=== PATIENT | male | born 1950 | race Caucasian/White ===

== ENCOUNTER 2021-04-25 15:06 | Outpatient (REF) | payer MEDICARE, MEDICAID, SELFPAY ==
[2021-04-25 19:55] LABS: ALT 38 U/L (16-63); AST 16 U/L (15-37); Albumin 4.3 g/dL (3.4-5.0); Alkaline Phosphatase 72 U/L (46-116); Anion Gap 6.5 mmol/L (3-11); BUN 21 mg/dL (7-18); Bilirubin, Total 0.6 mg/dL (0.2-1.0); CO2 32.5 mmol/L (21.0-32.0); CREATININE 1.1 mg/dL (0.70-1.30); Calcium 9.6 mg/dL (8.5-10.1); Calculated LDL 162 mg/dL (<100); Chloride 107 mmol/L (98-107); Cholesterol 254 mg/dL (<200); Glucose 69 mg/dL (74-106); HDL Cholesterol 41 mg/dL (40-60); Potassium 5.3 mmol/L (3.5-5.1); Sodium 146 mmol/L (136-145); Total Protein 7.2 g/dL (6.4-8.2); Triglyceride 256 mg/dL (<150)
[2021-04-26 18:10] LABS: PSA, Screening 3.2 ng/mL (0.0-4.5)
== END 2021-04-25 15:07 | disposition home or self-care (01) ==
LOC: NCHCN 15:06
PROVIDERS: PCP Specialist/Technologist Athletic Trainer; Referring Provider Physician Assistant Medical; Visit Provider Physician Assistant Medical
DX: Z00.00 Encounter for general adult medical examination without abnormal findings (principal); Z12.5 Encounter for screening for malignant neoplasm of prostate
CPT/HCPCS: 80053; 80061; 84153

== ENCOUNTER → 2021-05-12 09:26 | Outpatient (BNVA) | payer MEDICARE, MEDICAID, SELFPAY | PROVIDERS: PCP Physician Assistant Medical; Referring Provider Physician Assistant Medical; Visit Provider Surgery | DX: L72.3 Sebaceous cyst (principal); M67.442 Ganglion, left hand | CPT/HCPCS: 99203; 99241 ==

== ENCOUNTER 2021-05-23 08:31 | Outpatient (REF) | payer MEDICARE, MEDICAID, SELFPAY ==
--- NOTE | 2021-05-23 14:35 | SKI_PTH ---
PATIENT: Tee Bledsoe LOC: [facility]#:[id number] AGE/SX: 71/M ROOM: RE05/23/[address]: Renetta Ruelas : 1950 BED: DIS: 05/23/2021 SPEC #: [id number] RECD: 05/23/21 15:50 STATUS: MILKA REFrankie #: [id number] CAROLYN: 05/23/21 14:[address]: Renetta Ruelas DEPT: Surgical Specimen RECD BY: Pennie Borrego ENTERED: 05/23/21 15:52 SP TYPE: MATT WANG DR: Beth Roman Tissues: 1 - SKIN BIOPSY(SHAVE/PUNCH) 2 - SKIN BIOPSY(SHAVE/PUNCH) 3 - SKIN BIOPSY(SHAVE/PUNCH) Procedures: GROSS AND MICRO LEVEL 3 Comments: [id number]
== END 2021-05-23 08:32 | disposition home or self-care (01) ==
LOC: LBN 08:31
PROVIDERS: PCP Physician Assistant Medical; Visit Provider Surgery
DX: D17.9 Benign lipomatous neoplasm, unspecified (principal); D36.14 Benign neoplasm of peripheral nerves and autonomic nervous system of thorax; L72.8 Other follicular cysts of the skin and subcutaneous tissue
CPT/HCPCS: 88304; 88305

== ENCOUNTER → 2021-05-23 13:24 | Outpatient (BNVA) | payer MEDICARE, MEDICAID, SELFPAY | PROVIDERS: PCP Physician Assistant Medical; Referring Provider Physician Assistant Medical; Visit Provider Surgery | DX: D17.9 Benign lipomatous neoplasm, unspecified (principal); D36.14 Benign neoplasm of peripheral nerves and autonomic nervous system of thorax; L72.8 Other follicular cysts of the skin and subcutaneous tissue | CPT/HCPCS: 11400; 11422; 99241 ==

== ENCOUNTER → 2021-06-02 08:55 | Outpatient (BNVA) | payer MEDICARE, MEDICAID, SELFPAY | PROVIDERS: PCP Physician Assistant Medical; Referring Provider Physician Assistant Medical; Visit Provider Physical Therapy Assistant | DX: Z48.02 Encounter for removal of sutures (principal) ==

== ENCOUNTER 2021-07-11 11:19 | Outpatient (CLI) | payer MEDICARE, MEDICAID, SELFPAY ==
--- NOTE | 2021-07-11 10:15 | DI.RAD_ITS ---
Exam(s) XR HAND LT COMPLETE EXAM: XR HAND LT COMPLETE CLINICAL HISTORY: left hand cyst. TECHNIQUE: 2D digital imaging was performed. COMPARISON: No exams were available for comparison FINDINGS: No evidence of fracture dislocation. Tiny sub millimeter calcific density seen medial aspect of 3rd- middle finger. Soft tissues on the medial aspect of the hand the 3 adjacent small calcifications noted. These may b e associated with structure at this level. In soft tissues on lateral aspect of the hand there is a 1 millimeter density which is adjacent to th e head of the 2nd metatarsal index finger. Bone density is normal. No lytic osseous lesions. IMPRESSION: DATA REPOSITORY: RADIATION DOSE DELIVERED:
== END 2021-07-11 11:20 | disposition home or self-care (01) ==
LOC: DIORS 11:20
PROVIDERS: PCP Physician Assistant Medical; Referring Provider Surgery; Visit Provider Student in an Organized Health Care Education/Training Program
DX: R22.32 Localized swelling, mass and lump, left upper limb; M67.942 Unspecified disorder of synovium and tendon, left hand
CPT/HCPCS: 99213; 73130

== ENCOUNTER 2021-08-01 08:22 | Outpatient (REF) | payer MEDICARE, MEDICAID, SELFPAY ==
[2021-08-01 12:05] LABS: ALT 49 U/L (16-63); AST 22 U/L (15-37); Albumin 4.2 g/dL (3.4-5.0); Alkaline Phosphatase 79 U/L (46-116); BUN 18 mg/dL (7-18); Bilirubin, Total 0.7 mg/dL (0.2-1.0); CREATININE 1.1 mg/dL (0.70-1.30); Calcium 8.8 mg/dL (8.5-10.1); Calculated LDL 89 mg/dL (<100); Chloride 104 mmol/L (98-107); Cholesterol 160 mg/dL (<200); Glucose 89 mg/dL (74-106); HDL Cholesterol 43 mg/dL (40-60); Sodium 142 mmol/L (136-145); Total Protein 6.8 g/dL (6.4-8.2); Triglyceride 141 mg/dL (<150)
== END 2021-08-01 08:23 | disposition home or self-care (01) ==
LOC: NCHCN 08:22
PROVIDERS: PCP Physician Assistant Medical; Visit Provider Physician Assistant Medical
DX: E78.5 Hyperlipidemia, unspecified (principal)
CPT/HCPCS: 80053; 80061

== ENCOUNTER 2022-03-21 10:38 | Outpatient (CLI) | payer MEDICARE, MEDICAID, SELFPAY ==
--- NOTE | 2022-03-21 10:15 | DI.RAD_ITS ---
Exam(s) XR SHOULDER LT COMPLETE 2+V EXAM: XR SHOULDER LT COMPLETE 2+V CLINICAL HISTORY: shoulder pain. TECHNIQUE: 2D digital imaging was performed. COMPARISON: CR RIGHT SHOULDER COMPLETE from 03/04/2013 CR XR SHOULDER RT COMPLETE 2+V from 03/21/2022 FINDINGS: Two views of the left shoulder: No evidence of fracture or dislocation. No joint space narrowing. There is a 3 millimeter calcific density in the soft tissues immediately adjacent to the greater tuberosity consistent with calcific r otator cuff tendinitis. Subacromial space itself is not diminished. Mild degenerative changes in th e AC joint noted. Bone density normal. No osseous lesions. IMPRESSION: DATA REPOSITORY: RADIATION DOSE DELIVERED:
--- NOTE | 2022-03-21 10:15 | DI.RAD_ITS ---
Exam(s) XR SHOULDER RT COMPLETE 2+V EXAM: XR SHOULDER RT COMPLETE 2+V CLINICAL HISTORY: shoulder pain. TECHNIQUE: 2D digital imaging was performed. COMPARISON: CR RIGHT SHOULDER COMPLETE from 03/04/2013 FINDINGS: Two views: No evidence of fracture or dislocation. However, there is a 6 x 5 millimeter calcific density seen m edially above the greater trochanter consistent with calcific tendinitis. Subacromial space is not d iminished and there is no superior subluxation of the humeral head in the glenoid fossa. Minimal deg enerative changes in the glenohumeral joint. No significant osseous lesions. Bone density appears n ormal. IMPRESSION: DATA REPOSITORY: RADIATION DOSE DELIVERED:
== END 2022-03-21 10:39 | disposition home or self-care (01) ==
LOC: DIORS 10:39
PROVIDERS: PCP Physician Assistant Medical; Visit Provider Student in an Organized Health Care Education/Training Program
DX: M25.519 Pain in unspecified shoulder (principal)
CPT/HCPCS: 20610; 99204; 73030; J1030

== ENCOUNTER 2022-04-28 15:12 | Outpatient (REF) | payer MEDICARE, MEDICAID, SELFPAY ==
[2022-04-28 15:35] LABS: ALT 31 U/L (16-63); AST 17 U/L (15-37); Alkaline Phosphatase 95 U/L (46-116); Anion Gap 5.8 mmol/L (3-11); BUN 21 mg/dL (7-18); Bilirubin, Total 0.4 mg/dL (0.2-1.0); CO2 32.2 mmol/L (21.0-32.0); CREATININE 1.3 mg/dL (0.70-1.30); Calcium 9.3 mg/dL (8.5-10.1); Calculated LDL 161 mg/dL (<100); Chloride 103 mmol/L (98-107); Cholesterol 238 mg/dL (<200); Estimated GFR 59.47 (mL/min/1.73m2); Glucose 90 mg/dL (74-106); HDL Cholesterol 41 mg/dL (40-60); Potassium 4.4 mmol/L (3.5-5.1); Sodium 141 mmol/L (136-145); Total Protein 7.7 g/dL (6.4-8.2); Triglyceride 183 mg/dL (<150)
== END 2022-04-28 15:13 | disposition home or self-care (01) ==
LOC: NCHCN 15:12
PROVIDERS: PCP Physician Assistant Medical; Visit Provider Physician Assistant Medical
DX: Z00.00 Encounter for general adult medical examination without abnormal findings (principal); E78.5 Hyperlipidemia, unspecified
CPT/HCPCS: 80053; 80061

== ENCOUNTER → 2022-05-15 01:31 | Outpatient (CLI) | payer MEDICARE, MEDICAID, SELFPAY ==
--- NOTE | 2022-05-15 13:45 | DI.CTLCSR_ITS ---
Exam(s) CT CHEST LUNG CANCER SCREEN EXAM: CT CHEST LUNG CANCER SCREEN CLINICAL HISTORY: CIGARETTE SMOKER, F17.210 TECHNIQUE: Imaging Protocol: Axial computed tomography images with coronal and sagittal reformatted images were created and reviewed. Low dose screening protocol. COMPARISON: CR CHEST 2 VIEWS PA,LAT from 02/01/2015 FINDINGS: Tracheobronchial tree: No bronchiectasis or mucus plugging.. Mediastinum and Marina: No dominant adenopathy or fluid collection. Pulmonary parenchyma: No consolidation or dominant measurable mass. Mild emphysematous changes. Calc ified granuloma left lung base. Mild scarring versus atelectasis right lung base. Lung Nodules: None. Pleura: No effusion. No pneumothorax. Heart: The heart is not dilated. Mild coronary artery calcifications are seen. Aorta: Thoracic aorta non-dilated. Mild atherosclerotic changes. Upper abdomen: Low-density nodule left adrenal gland consistent with an adenoma. Bones: Unremarkable for age. Soft Tissues: Unremarkable. IMPRESSION: No suspicious pulmonary nodules. Lung RADS Cat 1 - Negative: No nodules and definitely benign nodules Lung-RADS 1.0 CATEGORIES: Category 0 - Prior chest CT exam(s) being located for comparison. Category 1 - Annual screening in 12 months. No nodules or definitely benign nodules. Category 2 - Annual screening in 12 months. Benign appearance. Nodules with low likelihood of becomin g active cancer. Category 3 - 6-month follow-up. Probably benign. Short-term follow-up suggested. Nodules with low lik elihood of becoming active cancer. Category 4A - 3-month follow-up and CT/PET if >8 mm in size. Suspicious finding. Findings which requi re additional testing. Category 4B - Findings which require additional testing and tissue sampling. Category 4X - Category 3 or 4 nodules with additional features or imaging findings that increases the suspicion of malignancy. Modifier S- Potentially clinically significant findings (non lung cancer) RADIATION DOSE DELIVERED: 77.88mGy.cm Total DLP 1.84mGy CTDIvol DATA REPOSITORY: All CT scans at this facility are submitted to the National Radiology Data Registry (NRDR) Dose Index Registry (DIR) with the [employer] (ACR). RADIATION OPTIMIZATION: All CT scans at this facility use at least one of these dose optimization te chniques: automated exposure control; mA and/or kV adjustment per patient size (includes targeted exa ms where dose is matched to clinical indication); or iterative reconstruction.
== END ==
PROVIDERS: PCP Physician Assistant Medical; Visit Provider Physician Assistant Medical
DX: Z12.2 Encounter for screening for malignant neoplasm of respiratory organs (principal); F17.210 Nicotine dependence, cigarettes, uncomplicated; J43.8 Other emphysema
CPT/HCPCS: 71271

== ENCOUNTER → 2022-06-08 02:10 | Outpatient (CLI) | payer MEDICARE, MEDICAID, SELFPAY ==
--- NOTE | 2022-06-08 06:45 | DI.MRI_ITS ---
Exam(s) MR UPPER JOINT RT WO CLINICAL HISTORY: R SHOULDER PAIN,CALCIFIC TENDINITIS,M75.31. TECHNIQUE: Multiplanar multisequence MRI was performed. COMPARISON: None FINDINGS: MR examination of the shoulder was performed according to the usual protocol. There is a small effusion of the glenohumeral joint. Trace fluid in the subacromial subdeltoid bursa . Bones and labrum: Subchondral cysts noted in humeral head subjacent to infraspinatus insertion .. Gl enoid labrum appears intact. Rotator cuff: Subscapularis tendon shows slight signal abnormality consistent with tendinosis period supraspinatus shows similar changes, with mild thickening of the tendon and a heterogeneous abnormal signal consistent with tendinosis. No definite supraspinatus tear. Infraspinatus tendon also shows mildly abnormal signal.probable minimal undersurface attachment tear of the infraspinatus at the hum eral head. There is small signal void in infraspinatus tendon consistent with the small calcific rad iodensity noted recently on plain films. Rotator interval structures are unremarkable with no evidence of a tear. Biceps tendon and anchor: Biceps tendon and anchor show normal signal and no evidence of a tear. Katelni ps tendon is normally positioned in the bicipital groove. IMPRESSION: Rotator cuff tendinosis as described above, probable small undersurface attachment tear infraspinatus tendon. DATA REPOSITORY:
== END ==
PROVIDERS: PCP Physician Assistant Medical; Visit Provider Student in an Organized Health Care Education/Training Program
DX: M75.31 Calcific tendinitis of right shoulder (principal)
CPT/HCPCS: 73221

== ENCOUNTER 2022-06-13 15:15 | Outpatient (REF) | payer MEDICARE, MEDICAID, SELFPAY ==
[2022-06-13 16:16] LABS: Creatine Kinase 96 U/L (39-308); Magnesium 2.1 mg/dL (1.8-2.4)
[2022-06-13 16:18] LABS: Abs Immature Grans 0.04 10^3/uL (0.0-0.06); Absolute Basophil Count 0.05 10^3/uL (0.0-0.2); Absolute Eosinophil Count 0.17 10^3/uL (0.0-0.7); Absolute Lymphocyte Count 1.68 10^3/uL (1.2-3.4); Absolute Monocyte Count 0.61 10^3/uL (0.1-0.8); Absolute Neutrophil Count 6.49 10^3/uL (1.2-6.7); Basophils % 0.6; Eosinophils % 1.9; HCT 48.9 % (40.0-50.0); HGB 16.1 g/dL (13.5-17.5); Immature Grans % 0.4; Lymphocytes % 18.6; MCH 29.3 pg (27.0-33.0); MCHC 32.9 % (32.0-36.0); MCV 89 fL (80-95); MPV 9.9 fL (8.0-11.0); Monocytes % 6.7; Neutrophils % 71.8; Platelet Count 257 10^3/uL (130-400); RBC 5.49 10^6/uL (4.36-5.78); RDW 13.5 % (11.8-14.1); RDW-SD 44.2 fL; WBC 9.04 10^3/uL (4.4-10.8)
[2022-06-15 09:33] LABS: Lyme Ab w Rflx to Lyme Confirm Negative (Negative)
[2022-06-17 18:08] LABS: Anaplasma phagocytophilum Negative (Negative); B. miyamotoi PCR Negative (Negative); Babesia divergens/MO-1 Negative (Negative); Babesia duncani Negative (Negative); Babesia microti Negative (Negative); Ehrlichia chaffeensis Negative (Negative); Ehrlichia ewingii/canis Negative (Negative); Ehrlichia muris eauclairensis Negative (Negative)
== END 2022-06-13 15:16 | disposition home or self-care (01) ==
LOC: NCHCN 15:15
PROVIDERS: PCP Physician Assistant Medical; Visit Provider Physician Assistant Medical
DX: M79.10 Myalgia, unspecified site (principal)
CPT/HCPCS: 82550; 87798; 83735; 85025; 86618

== ENCOUNTER → 2022-06-14 13:32 | Outpatient (BNVA) | payer MEDICARE, MEDICAID, SELFPAY | PROVIDERS: PCP Physician Assistant Medical; Referring Provider Physician Assistant Medical; Visit Provider Student in an Organized Health Care Education/Training Program | DX: M75.21 Bicipital tendinitis, right shoulder (principal); M75.31 Calcific tendinitis of right shoulder; M75.51 Bursitis of right shoulder; M75.101 Unspecified rotator cuff tear or rupture of right shoulder, not specified as traumatic | CPT/HCPCS: 99214 ==

== ENCOUNTER 2022-07-27 01:47 | Emergency (ER) | payer MEDICARE, MEDICAID, SELFPAY ==
[2022-07-27 01:55] VITALS: BP 133/80; PULSE 83; RESP 15; TEMP 36.7; O2SAT 97
--- NOTE | 2022-07-27 02:00 | DI.RAD_ITS ---
Exam(s) XR PORTABLE CHEST AP EXAM: XR PORTABLE CHEST AP CLINICAL HISTORY: cough TECHNIQUE: 2D digital imaging was performed. COMPARISON: CT CT CHEST LUNG CANCER SCREEN from 05/15/2022 FINDINGS: LUNGS: Clear. No pleural abnormality seen. HEART: Normal size. AORTA: Normal diameter. Mildly tortuous. BONES: Unremarkable for age. Soft tissues: Unremarkable. IMPRESSION: No acute findings. DATA REPOSITORY: RADIATION DOSE DELIVERED:
--- NOTE | 2022-07-27 02:07 | ED.GENADUL_ITS ---
Discharge Plan Disposition Patient Disposition: Home Condition: Stable Discharge Details Clinical Impression: Influenza, Shortness of breath Primary Care Provider: Bteh Roman ED Provider: Gordon Massey Home Meds and New Rx's Prescriptions: New prednisone 20 mg tablet 60 mg PO DAILY 4 Days Qty: 12 0RF Continued acetaminophen [Tylenol] 325 mg capsule 325 mg PO ONCE PRN ibuprofen [Advil] 200 mg tablet 200 mg PO Q6H PRN latanoprost 0.005 % drops 1 drp ophthalmic (eye) .QHS Label Comments: INSTILL 1 DROP IN BOTH EYES EVERY EVENING Discharge Instructions Instructions: Influenza (ED), Dyspnea (ED) Additional Instructions: Your blood work and xray did not show concerning findings You can take 2 puffs from the inhaler every 2-4 hours as needed follow up with your primary care provider within 1 week if you feel more ill, have worsening shortness of breath or pain return to the emergency department Medical Decision Making 72 yo male who denies chronic medical problems, is a chronic smoker, comes in with 4 days of worsening cough and dyspnea. He states he went to his pcp's office Sunday and tested positive for flu A. He states he feels like his right lower lung feels tight. He denies any chest pain or chest pressure. He arrives speaking clearly, caox4. He has diffuse wheezing in all lung lea bilaterally, no jvd, no murmurs, no lower leg swelling or calf tenderness. I suspect he has undiagnosed copd given his chronic smoking history and due to the flu is causing it to worsen, will treat with duoneb and solumedrol. Will obtain cbc, cmp and cxr to evaluate for infiltrate. No leg swelling and no calf tenderness, no tachycardia or hypoxia so doubt Pe and no chest pain to suggest acs at this time and symptoms seem infectious in etiology. pt feels better after two duonebs, only has mild apical wheezing bilaterally now. Xray unremarkable, blood work unremarkable, he is positive for both covid and flu. He states he had covid a month or so ago and took paxlovid, could be testing positive from this. He is 95% on room air, speaking in full sentences and feels well enough for d/c. Discussed paxlovid again but he is vaccinated and boostered so declines this and has decision making capacity. Will d/c with albuterol inhaler, prednisone and advised to f/u with pcp, return precautions given Differential Diagnosis Differential Diagnosis: influenza, copd, pneumonia Imaging Data Radiologic Study: Attestation: I personally reviewed and interpreted this imaging study as follows: Imaging: X-Ray Radiologist's impression: no acute findings Lab Data Lab results reviewed: Yes I reviewed the patient's lab results. HPI General Mode of arrival: ambulatory . Date/Time Provider Initiated Documentation: 07/27/22 01:51 . Limitations to Documentation: no limitations . Information obtained by: patient . History of Present Illness 72 year old M presents to the emergency department with the chief complaint of cough, described as moderate, Patient started experiencing this day(s) (4) and it has been constant. No relieving factors improve symptom(s), No exacerbating factors reported . Patient notes fever/chills. Patient did receive the following treatments prior to arrival, none Related Data Home Medications Medication Instructions Recorded Confirmed acetaminophen 325 mg capsule 325 mg PO ONCE PRN 03/21/22 07/27/22 (Tylenol) ibuprofen 200 mg tablet (Advil) 200 mg PO Q6H PRN 03/21/22 07/27/22 latanoprost 0.005 % eye drops 1 drp ophthalmic (eye) .QHS 07/27/22 07/27/22 prednisone 20 mg tablet 60 mg PO DAILY 4 days #12 tabs 07/27/22 Previous Rx's Medication Instructions Recorded prednisone 20 mg tablet 60 mg PO DAILY 4 days #12 tabs 07/27/22 Allergies Allergy/AdvReac Type Severity Reaction Status Date / Time No Known Allergies Allergy Unverified 07/27/22 02:01 General Stated Complaint: Chest/Rib STAR: 3 Review of Systems All systems reviewed & are unremarkable except as noted in HPI and below Constitutional Constitutional: Denies chills, Denies fever(s) and Denies weakness Eyes Eyes: Denies loss of vision Cardiovascular Cardiovascular: Denies chest pain Gastrointestinal Gastrointestinal: Denies abdominal pain, Denies nausea and Denies vomiting Musculoskeletal Musculoskeletal: Denies joint swelling Neurologic Neurologic: Denies loss of vision and Denies weakness PFSH All Active Problems (Updated 07/27/22 @ 03:51 by Gordon Massey MD) Influenza (Acute) Shortness of breath (Acute) Rotator cuff tear, right (Acute) Bursitis of right shoulder (Acute) Tendonitis of long head of biceps brachii of right shoulder (Acute) Calcific tendinitis of right shoulder (Acute) Calcific tendinitis of left shoulder (Acute) Mass of left finger (Acute) Seborrheic keratoses (Acute) Actinic keratitis (Acute) Lipoma (Acute) Ganglion cyst (Acute) Sebaceous cyst (Acute) Medical History Diverticulosis Dyslipidemia Erectile dysfunction Lipoma of neck Smoker Surgical History (Updated 04/28/21 @ 15:46 by Charlotte Gardner RN) History of colonoscopy (~06/20/06) History of inguinal hernia repair Social History Smoking/Tobacco Use Status: Current every day Smoking risk assessment performed?: Yes Alcohol Intake: never Drug use: Never Substance use type: does not use Current gender identity: male Exam Const General: no acute distress Orientation: alert HENMT Head: normal to inspection Ears: external ears normal General nose exam: external nose normal Mouth: moist mucous membranes Eyes General: appearance normal, both eyes and all related structures Neck Neck: normal visual inspection Resp Effort & Inspection: normal respiratory effort, able to speak in complete sentences and cough Auscultation: wheezes Cardio Jugular venous pressure: no JVD Rate: regular rate Heart Sounds: no murmurs Skin General skin exam: no rashes or lesions noted Neuro General: patient alert and patient oriented x3 Extrem General: normal to inspection Psych Mental Status: mental status grossly normal Course Vital Signs Vital signs: Vital Signs Temperature 36.7 C 07/27/22 01:55 Pulse 83 07/27/22 01:55 Respiratory Rate 15 07/27/22 01:55 Blood Pressure 133/80 07/27/22 01:55 Pulse Oximetry 97 07/27/22 01:55 Temperature 36.7 C 07/27/22 01:55 Temperature Source Temporal Artery Scan 07/27/22 01:55 Pulse 83 07/27/22 01:55 Respiratory Rate 15 07/27/22 01:55 Respiratory Effort 07/27/22 01:55 Blood Pressure 133/80 07/27/22 01:55 Blood Pressure Position Supine 07/27/22 01:55 Pulse Oximetry 97 07/27/22 01:55 Pain Level 10 07/27/22 01:55
[2022-07-27] MEDS: Albuterol/Ipratropium 3 ML UPD VIAL UPD (02:10)
[2022-07-27] MEDS: methylPREDNISolone SUCC 125 MG VIAL IVP (02:10)
[2022-07-27] MEDS: Normal Saline Flush 10 ML SYR IVP (02:15)
[2022-07-27 02:16] LABS: Abs Immature Grans 0.01 10^3/uL (0.0-0.06); Absolute Basophil Count 0.01 10^3/uL (0.0-0.2); Absolute Eosinophil Count 0.14 10^3/uL (0.0-0.7); Absolute Lymphocyte Count 1.42 10^3/uL (1.2-3.4); Absolute Monocyte Count 0.68 10^3/uL (0.1-0.8); Absolute Neutrophil Count 2.98 10^3/uL (1.2-6.7); Basophils % 0.2; Eosinophils % 2.7; HCT 46.6 % (40.0-50.0); HGB 15.2 g/dL (13.5-17.5); Immature Grans % 0.2; Lymphocytes % 27.1; MCH 29.2 pg (27.0-33.0); MCHC 32.6 % (32.0-36.0); MCV 90 fL (80-95); Neutrophils % 56.8; Platelet Count 181 10^3/uL (130-400); RDW-SD 42.8 fL; WBC 5.24 10^3/uL (4.4-10.8)
[2022-07-27 02:35] LABS: ALT 37 U/L (16-63); AST 34 U/L (15-37); Albumin 3.7 g/dL (3.4-5.0); Alkaline Phosphatase 86 U/L (46-116); Anion Gap 6.8 mmol/L (3-11); BUN 20 mg/dL (7-18); Bilirubin, Total 0.6 mg/dL (0.2-1.0); CO2 31.2 mmol/L (21.0-32.0); CREATININE 1.3 mg/dL (0.70-1.30); Calcium 8.6 mg/dL (8.5-10.1); Chloride 102 mmol/L (98-107); Glucose 127 mg/dL (74-106); Potassium 3.9 mmol/L (3.5-5.1); Sodium 140 mmol/L (136-145); Total Protein 7.1 g/dL (6.4-8.2)
--- NOTE | 2022-07-27 02:55 | DI.VRAD_ITS ---
PROCEDURE INFORMATION: Exam: XR Chest Exam date and time: 07/27/2022 2:25 AM Age: 72 years old Clinical indication: Cough TECHNIQUE: Imaging protocol: Radiologic exam of the chest. Views: 1 view. COMPARISON: CT CHEST LUNG CANCER SCREEN 05/15/2022 1:14 PM FINDINGS: Lungs: Unremarkable. No consolidation. Pleural spaces: Unremarkable. No pleural effusion. No pneumothorax. Heart/Mediastinum: Unremarkable. No cardiomegaly. Bones/joints: Unremarkable. IMPRESSION: No acute findings. Dictated and Authenticated by: Gordon Sun MD. Ordering:ANTON Leyva MD
[2022-07-27 03:11] LABS: Influenza A PCR Positive (Negative); Influenza B PCR Negative (Negative); RSV PCR Negative (Negative)
[2022-07-27 03:14] LABS: COVID-19 PCR Positive (Negative); Source Nasopharynx
[2022-07-27] MEDS: Inhaler, Assist Device 1 EACH MC (03:59)
[2022-07-27] MEDS: Albuterol HFA 8 GM 60 PUFF INH IH (04:00)
[2022-07-27 04:14] VITALS: BP 130/70; PULSE 91; RESP 16; O2SAT 95
== END 2022-07-27 04:16 | disposition home or self-care (01) ==
PROVIDERS: Emergency Provider Emergency Medicine; PCP Physician Assistant Medical
DX: J10.1 Influenza due to other identified influenza virus with other respiratory manifestations (principal); U07.1 COVID-19; F17.200 Nicotine dependence, unspecified, uncomplicated
CPT/HCPCS: 36415; 80053; 87637; 94640; 96374; 99284; 71045; 85025; J2930; J7620

== ENCOUNTER → 2023-10-29 11:25 | Outpatient (CLI) | payer MEDICARE, MEDICAID, SELFPAY ==
--- NOTE | 2023-10-29 | DI.RAD_ITS ---
Exam(s) XR CHEST 2V PA LATERAL EXAM: XR CHEST 2V PA LATERAL CLINICAL HISTORY: FRANKLIN, R06.09; H/O COPD, X2-3 weeks of cough, SOB TECHNIQUE: 2D digital imaging was performed. Two views. COMPARISON: CR,XR XR PORTABLE CHEST AP from 07/27/2022 FINDINGS: HEART: Normal size. Aorta: Not dilated. PULMONARY VASCULATURE: Normal. LUNGS: Clear. PLEURAL SPACE: No pleural effusion or pneumothorax. BONE:Unremarkable for age. Soft tissues: Unremarkable. IMPRESSION: No acute abnormality. DATA REPOSITORY: RADIATION DOSE DELIVERED:
== END ==
PROVIDERS: PCP Physician Assistant Medical; Visit Provider Nurse Practitioner Family
DX: R06.09 Other forms of dyspnea (principal)
CPT/HCPCS: 71046

== ENCOUNTER 2023-11-07 15:56 | Outpatient (REF) | payer MEDICARE, MEDICAID, SELFPAY ==
[2023-11-07 20:57] LABS: ALT 34 U/L (16-63); AST 25 U/L (15-37); Albumin 3.8 g/dL (3.4-5.0); Alkaline Phosphatase 79 U/L (46-116); Anion Gap 9.2 mmol/L (3-11); BUN 19 mg/dL (7-18); Bilirubin, Total 0.4 mg/dL (0.2-1.0); CO2 28.8 mmol/L (21.0-32.0); CREATININE 1.3 mg/dL (0.70-1.30); Calcium 8.9 mg/dL (8.5-10.1); Chloride 103 mmol/L (98-107); Cholesterol 222 mg/dL (<200); Estimated GFR 58.73 (mL/min/1.73m2); Glucose 95 mg/dL (74-106); HDL Cholesterol 32 mg/dL (40-60); Potassium 4.3 mmol/L (3.5-5.1); Sodium 141 mmol/L (136-145); Triglyceride 412 mg/dL (<150)
[2023-11-07 21:13] LABS: Hemoglobin A1C 5.6 % (<5.7)
[2023-11-07 21:31] LABS: LDL CHOLESTEROL 113 mg/dL (<100)
[2023-11-08 17:31] LABS: PSA, Screening 6.6 ng/mL (<=6.5)
== END 2023-11-07 15:57 | disposition home or self-care (01) ==
LOC: NCHCN 15:56
PROVIDERS: PCP Physician Assistant Medical; Visit Provider Physician Assistant Medical
DX: E78.5 Hyperlipidemia, unspecified (principal)
CPT/HCPCS: 80053; 80061; 83721; 84153; 83036

== ENCOUNTER → 2023-11-16 00:36 | Outpatient (CLI) | payer MEDICARE, MEDICAID, SELFPAY ==
--- NOTE | 2023-11-16 | DI.CT_ITS ---
Exam(s) CT CHEST WO EXAM: CT CHEST WO CLINICAL HISTORY: COPD,J44.9,CURRENT SMOKER,SCREENING FOR CA. TECHNIQUE: Multi planar reconstructions were performed. CONTRAST MATERIAL: None COMPARISON: CT CT CHEST LUNG CANCER SCREEN from 05/15/2022 CR,XR XR PORTABLE CHEST AP from 07/27/2022 CR XR CHEST 2V PA LATERAL from 10/29/2023 FINDINGS: CHEST: LUNGS: There is an unchanged calcified granuloma in the left lung base posterior basal segment. Mild increased subpleural markings are again noted in the posterior basal segment of the right lower lobe, unchanged from CT scan of 05/15/2022. In the inferior aspect of the lateral segment of the rig ht middle lobe there is slightly increased benign-appearing markings which were not previously presen t (series 2/image 124). There are no pleural effusions on either side. MEDIASTINUM: There is no obvious hilar nor mediastinal adenopathy. Small calcified lymph node in the left hilum again noted, this being the side with the benign left lower lobe granuloma. No calcified lymph nodes in the right hilum nor in the subcarinal region or elsewhere in the mediastinum. Visual ized thyroid unremarkable. CARDIAC: Heart size is normal. There is no pericardial effusion.Caliber of the thoracic aorta is wit hin normal limits. VISUALIZED UPPER ABDOMEN:Right adrenal gland unremarkable. Hypodense nodule in the left adrenal glan d measuring 3 x 1.8 cm is unchanged. Probably adenoma. OSSEOUS: No significant osseous lesions.. IMPRESSION: 1. Stable benign-appearing findings with the exception of a new small nodular infiltrate in the most lateral aspect of the right middle lobe, inferiorly. This is fissure related. 2. No pleural effusions nor significant intrathoracic adenopathy. 3. Lung rads category: 1-benign appearance. Nodule with low likelihood of becoming active cancer. R ecommend repeat scan in 1 year RADIATION DOSE DELIVERED: Total DLP DATA REPOSITORY: All CT scans at this facility are submitted to the National Radiology Data Registry (NRDR) Dose Index Registry (DIR) with the [employer] (ACR). RADIATION OPTIMIZATION: All CT scans at this facility use at least one of these dose optimization te chniques: automated exposure control; mA and/or kV adjustment per patient size (includes targeted exa ms where dose is matched to clinical indication); or iterative reconstruction.
== END ==
PROVIDERS: PCP Physician Assistant Medical; Visit Provider Physician Assistant Medical
DX: J44.9 Chronic obstructive pulmonary disease, unspecified (principal)
CPT/HCPCS: 71250

== ENCOUNTER 2023-11-16 02:42 | Outpatient (CLI) | payer MEDICARE, MEDICAID, SELFPAY ==
[2023-11-16] MEDS: Levalbuterol HFA 15 GM INH 4 PUFF IH (14:20)
[2023-11-16] MEDS: Inhaler, Assist Device 1 EACH MC (14:21)
--- NOTE | 2023-11-16 14:41 | W.PFT ---
Date of service: 11/16/23 Time of Service: 13:01 Pulmonary Function Test Result Indications: COPD Interpretation Spirometry: There is moderate airflow limitation. There is a significant bronchodilator response. Lung Volumes: There is air trapping Diffusion Capacity: Normal diffusion Airway Pressure: Normal airways resistance Impression Moderate airflow obstruction with air trapping and a normal diffusion. Clinical Correlation therefore is recommended.
== END 2023-11-16 02:43 | disposition home or self-care (01) ==
LOC: RT 02:42
PROVIDERS: PCP Physician Assistant Medical; Visit Provider Physician Assistant Medical
DX: J44.9 Chronic obstructive pulmonary disease, unspecified (principal)
CPT/HCPCS: 94060; 94726; 94729

== ENCOUNTER 2023-12-13 13:03 | Outpatient (REF) | payer MEDICARE, MEDICAID, SELFPAY ==
[2023-12-13 15:18] LABS: Calculated LDL 162 mg/dL (<100); Cholesterol 241 mg/dL (<200); HDL Cholesterol 46 mg/dL (40-60); Triglyceride 165 mg/dL (<150)
[2023-12-14 08:43] LABS: PSA, Diagnostic 5.8 ng/mL (<=6.5)
== END 2023-12-13 13:04 | disposition home or self-care (01) ==
LOC: NCHCN 13:03
PROVIDERS: PCP Physician Assistant Medical; Visit Provider Physician Assistant Medical
DX: E78.2 Mixed hyperlipidemia (principal); R97.20 Elevated prostate specific antigen [PSA]
CPT/HCPCS: 80061; 84153

== ENCOUNTER 2023-12-16 05:49 | Emergency (ER) | payer MEDICARE, MEDICAID, SELFPAY ==
--- NOTE | 2023-12-16 05:45 | RT.EKG_ITS ---
APPROVED REPORT Exam: Resting ECG Reason for Exam: SOB Patient Location: E HR:72 bpm ECG Measurements Heart Rate 72 AXIS ID 168 P 78 QRSd 85 QRS 74 QT 377 T 61 QTc 412 Conclusion Sinus arrhythmia...V-rate 62- 91, variation>10% Physician: no stemi
[2023-12-16 05:51] VITALS: BP 137/81; PULSE 88; RESP 16; TEMP 36.4; O2SAT 98
--- NOTE | 2023-12-16 05:57 | ED.GENADUL_ITS ---
Discharge Plan Disposition Patient Disposition: Home Condition: Good Discharge Details Clinical Impression: COPD exacerbation Primary Care Provider: Beth Roman ED Provider: Haseeb Cordero Home Meds and New Rx's Prescriptions: New doxycycline hyclate 100 mg tablet 100 mg PO BID 7 Days Qty: 14 0RF prednisone 50 mg tablet 50 mg PO DAILY Qty: 5 0RF No Action acetaminophen [Tylenol] 325 mg capsule 325 mg PO ONCE PRN ibuprofen [Advil] 200 mg tablet 200 mg PO Q6H PRN latanoprost 0.005 % drops 1 drp ophthalmic (eye) .QHS Patient Comments: INSTILL 1 DROP IN BOTH EYES EVERY EVENING Combivent Respimat 20-100 mcg/actuation mist INHALATION Discharge Instructions Instructions: COPD (Chronic Obstructive Pulmonary Disease) (ED) Additional Instructions: At this time you have a COPD exacerbation. Thankfully the rest of your workup was notably stable. Please take the Symbicort inhaler, 2 puffs every 12 hours for the next 1 to 2 weeks. Please take the prednisone as directed. Please take the antibiotic doxycycline as directed. Please be mindful that it can cause notable sensitivity to the sun while on the antibiotic. Please do not take it on an empty stomach as this can cause notable nausea. Additionally avoid taking it with dairy products as the calcium can make it less effective. If you notice any worsening of your symptoms, or any new symptoms such as vomiting, diarrhea, fever, chills, shortness of breath, chest pain, numbness, weakness, or fainting , please return immediately to the emergency department for reevaluation. Please follow up with your primary care provider as soon as possible for reassessment and reevaluation. As always, it was a pleasure participating in your medical care today. Referrals: Beth Roman PA [Primary Care Provider] - HPI General Date/Time Provider Initiated Documentation: 12/16/23 05:50 . HPI Narrative: This is a pleasant 73-year-old male with a past medical history of asthma/COPD, previous tobacco smoker (who quit 4 years ago), who presents today for evaluation of shortness of breath. Patient states that he has been mildly short of breath for the last few weeks, it is worse about 3 to 4 weeks ago when he took a steroid burst pack, and had notable improvement however over the last day or 2 symptoms notably returned, he was significantly short of breath, he developed a productive cough. He denies fever or chills. No chest pain. He does admit to tightness with breathing though. He did take his albuterol inhaler but only did this a little stating that it caused a burning sensation in his lungs. He denies any vomiting or diarrhea. He denies any history of cardiac disease. No other complaints at this time. Related Data Home Medications Medication Instructions Recorded Confirmed acetaminophen 325 mg capsule 325 mg PO ONCE PRN 03/21/22 12/16/23 (Tylenol) ibuprofen 200 mg tablet (Advil) 200 mg PO Q6H PRN 03/21/22 12/16/23 latanoprost 0.005 % eye drops 1 drp ophthalmic (eye) .QHS 07/27/22 12/16/23 doxycycline hyclate 100 mg tablet 100 mg PO BID 7 days #14 tabs 12/16/23 ipratropium 20 mcg-albuterol 100 inhalation 12/16/23 mcg/actuation mist for inhalation (Combivent Respimat) prednisone 50 mg tablet 50 mg PO DAILY #5 tabs 12/16/23 Previous Rx's Medication Instructions Recorded doxycycline hyclate 100 mg tablet 100 mg PO BID 7 days #14 tabs 12/16/23 prednisone 50 mg tablet 50 mg PO DAILY #5 tabs 12/16/23 Allergies Allergy/AdvReac Type Severity Reaction Status Date / Time No Known Allergies Allergy Unverified 12/16/23 06:08 General Stated Complaint: RespSymp STAR: 3 Review of Systems All systems reviewed & are unremarkable except as noted in HPI and below Exam Narrative Exam Narrative: 1.Const: Well-nourished, Well-developed, appearing stated age 2.Eyes: PERRL, no conjunctival injection, and symmetrical lids. 3.ENT: Atraumatic external nose and ears. Moist MM. Neck: Symmetric, trachea midline, No thyromegaly. 4.CVS: +S1/S2, No murmurs or gallops. Peripheral pulses 2+ and equal in all extremities. Brisk capillary refill in all extremities. 5.RESP: Slightly labored respiratory effort, notable expiratory wheeze. No crackles or rhonchi 6.GI: Soft, Nontender/Nondistended, No hepatosplenomegaly. No guarding or rebound. 7.MSK: Normocephalic/Atraumatic, Extremities w/o deformity or ttp No cyanosis or clubbing, Normal movement of all extremities 8.Skin: Warm, Dry. No rashes or lesions. 9.Neuro: environmental health nurse II-XII grossly intact. Sensation grossly intact, no focal neurologic deficits. 10.Psych: (AAO) x3. Appropriate mood and affect Course Vital Signs Vital signs: Vital Signs Temperature 36.4 C L 12/16/23 05:51 Pulse 88 12/16/23 05:51 Respiratory Rate 16 12/16/23 05:51 Blood Pressure 137/81 12/16/23 05:51 Pulse Oximetry 98 12/16/23 05:51 Temperature 36.4 C L 12/16/23 05:51 Temperature Source Oral 12/16/23 05:51 Pulse 88 12/16/23 05:51 Respiratory Rate 16 12/16/23 05:51 Respiratory Effort Short of Breath, Labored 12/16/23 05:55 Respiratory Depth Retractive 12/16/23 05:55 Blood Pressure 137/81 12/16/23 05:51 Pulse Oximetry 98 12/16/23 05:51 Oxygen Delivery Method Room Air 12/16/23 05:51 Oxygen Flow Rate 0 12/16/23 05:51 Pain Level 0 12/16/23 05:51 Medical Decision Making This is a pleasant 73-year-old male with a past medical history of asthma/COPD, previous tobacco smoker (who quit 4 years ago), who presents today for evaluation of shortness of breath. Patient states that he has been mildly short of breath for the last few weeks, it is worse about 3 to 4 weeks ago when he took a steroid burst pack, and had notable improvement however over the last day or 2 symptoms notably returned, he was significantly short of breath, he developed a productive cough. He denies fever or chills. No chest pain. He does admit to tightness with breathing though. He did take his albuterol inhaler but only did this a little stating that it caused a burning sensation in his lungs. He denies any vomiting or diarrhea. He denies any history of cardiac disease. No other complaints at this time. Exam demonstrates notable expiratory wheeze, no hypoxemia. Differential signs for asthma/COPD exacerbation. Symptoms appearing consistent with ACS. EKG shows no evidence of STEMI. Pneumonia is also on the differential. Will evaluate for these etiologies, monitor closely and reassess. Will give 3 DuoNebs, 125 Solu-Medrol, get chest x-ray. 7:29 AM Patient feeling much better on reassessment. Wheezes improved. No hypoxemia. No respiratory distress. Laboratory workup is normal, EKG benign, troponin normal. Chest x-ray negative for acute process except for minimal streaking in the bases. Out of an abundance of precaution we will start the patient on a doxycycline course. Will do 5 days of steroids outpatient, start the patient on Symbicort. Patient otherwise stable. Symptoms consistent with COPD exacerbation. However with notable improvement, stable vital signs, otherwise benign workup. No indication for admission at this time. Discussed red flags for which to return. I have extensively reviewed the treatment plan and discharge instructions with the patient. I have addressed all patient concerns at this time. The patient was made aware of what symptoms to monitor for that would warrant a return to the emergency department. Discussed the plan with the patient, they demonstrate verbal understanding and agreement with our assessment and plan at this time. The documentation in this chart was dictated using Augment dictation software. Please excuse any dictation errors. FINDINGS: Lungs: Minimal streaky densities at the lung bases, likely scarring or atelectasis. Pleural spaces: No large pleural effusion seen. Heart/Mediastinum: No cardiomegaly. Bones/joints: Grossly unremarkable. IMPRESSION: No acute findings to explain reported symptoms. Thank you for allowing us to participate in the care of your patient. Dictated and Authenticated by: Brooke Jara MD 12/16/2023 7:20 AM Eastern Time ([place] & [place]) Quality:SDOH Health Related Social Needs: No Data to Display PFSH All Active Problems (Updated 12/16/23 @ 07:30 by Haseeb Cordero DO) COPD exacerbation (Acute) Rotator cuff tear, right (Acute) Bursitis of right shoulder (Acute) Tendonitis of long head of biceps brachii of right shoulder (Acute) Calcific tendinitis of right shoulder (Acute) Calcific tendinitis of left shoulder (Acute) Mass of left finger (Acute) Seborrheic keratoses (Acute) Actinic keratitis (Acute) Lipoma (Acute) Ganglion cyst (Acute) Sebaceous cyst (Acute) Medical History Diverticulosis Smoker Dyslipidemia Erectile dysfunction Lipoma of neck Surgical History History of colonoscopy (~06/20/06) History of inguinal hernia repair Social History Smoking/Tobacco Use Status: Current every day Smoking risk assessment performed?: Yes Alcohol Intake: never Drug use: Never Substance use type: does not use Current gender identity: male
[2023-12-16] MEDS: Albuterol/Ipratropium 3 ML UPD VIAL 9 ML UPD (06:05)
[2023-12-16] MEDS: methylPREDNISolone SUCC 125 MG VIAL IVP (06:05)
--- NOTE | 2023-12-16 06:21 | DI.RAD_ITS ---
Exam(s) XR PORTABLE CHEST AP EXAM: XR PORTABLE CHEST AP CLINICAL HISTORY: cough, SOB, r/o pneumonia TECHNIQUE: 2D digital imaging was performed of the chest. Two images were obtained. AP views were obtained. COMPARISON: CR,XR XR PORTABLE CHEST AP from 07/27/2022 CR XR CHEST 2V PA LATERAL from 10/29/2023 FINDINGS: MEDIASTINUM: Normal. HEART: Normal. PULMONARY VASCULATURE: Normal. LUNGS: Clear. PLEURAL SPACE: No pleural effusion or pneumothorax. BONE:Within normal limits for the patient's age. OTHER FINDINGS:Normal. IMPRESSION: No acute pulmonary findings. DATA REPOSITORY: RADIATION DOSE DELIVERED:
[2023-12-16 06:24] LABS: Abs Immature Grans 0.03 10^3/uL (0.0-0.06); Absolute Basophil Count 0.08 10^3/uL (0.0-0.2); Absolute Eosinophil Count 0.74 10^3/uL (0.0-0.7); Absolute Lymphocyte Count 2.44 10^3/uL (1.2-3.4); Absolute Monocyte Count 0.73 10^3/uL (0.1-0.8); Absolute Neutrophil Count 3.79 10^3/uL (1.2-6.7); Eosinophils % 9.5 %; HGB 16.8 g/dL (13.5-17.5); Immature Grans % 0.4 %; Lymphocytes % 31.2 %; MCH 29.6 pg (27.0-33.0); MCHC 32.9 % (32.0-36.0); MCV 90 fL (80-95); MPV 9.1 fL (8.0-11.0); Monocytes % 9.3 %; Neutrophils % 48.6 %; Platelet Count 239 10^3/uL (130-400); RBC 5.67 10^6/uL (4.36-5.78); RDW 13.1 % (11.8-14.1); RDW-SD 42.8 fL; WBC 7.81 10^3/uL (4.4-10.8)
[2023-12-16 06:44] LABS: ALT 31 U/L (16-63); AST 20 U/L (15-37); Albumin 4.1 g/dL (3.4-5.0); Alkaline Phosphatase 86 U/L (46-116); Anion Gap 8.2 mmol/L (3-11); BUN 18 mg/dL (7-18); Bilirubin, Total 0.6 mg/dL (0.2-1.0); CO2 30.8 mmol/L (21.0-32.0); CREATININE 1.3 mg/dL (0.70-1.30); Chloride 105 mmol/L (98-107); Estimated GFR 58.73 (mL/min/1.73m2); Glucose 99 mg/dL (74-106); Potassium 4.3 mmol/L (3.5-5.1); Sodium 144 mmol/L (136-145); Total Protein 7.3 g/dL (6.4-8.2); Troponin I < 50 ng/L (< or =60)
--- NOTE | 2023-12-16 07:21 | DI.VRAD_ITS ---
PROCEDURE INFORMATION: Exam: XR Chest Exam date and time: 12/16/2023 6:12 AM Age: 73 years old Clinical indication: Cough and shortness of breath; Patient HX: Cough, SOB, R/O pneumonia TECHNIQUE: Imaging protocol: Radiologic exam of the chest. Views: 1 view. COMPARISON: No relevant prior studies are available for comparison. FINDINGS: Lungs: Minimal streaky densities at the lung bases, likely scarring or atelectasis. Pleural spaces: No large pleural effusion seen. Heart/Mediastinum: No cardiomegaly. Bones/joints: Grossly unremarkable. IMPRESSION: No acute findings to explain reported symptoms. Dictated and Authenticated by: Brooke Jara MD. Ordering:TOM Membreno MD
[2023-12-16 07:35] VITALS: BP 118/69; PULSE 72; RESP 18; TEMP 36.6; O2SAT 95
[2023-12-16] MEDS: Budesonide/Formoterol 160/4.5 6 GM 60 PUFF INH IH (07:53)
[2023-12-16 07:54] VITALS: BP 118/69; PULSE 72; RESP 18; TEMP 36.6; O2SAT 95
== END 2023-12-16 07:55 | disposition home or self-care (01) ==
PROVIDERS: Emergency Provider Student in an Organized Health Care Education/Training Program; PCP Physician Assistant Medical
DX: J44.1 Chronic obstructive pulmonary disease with (acute) exacerbation (principal); R06.02 Shortness of breath; R05.1 Acute cough; Z87.891 Personal history of nicotine dependence
CPT/HCPCS: 36415; 80053; 93005; 94640; 96374; 99284; 71045; 84484; 85025; 93010; 99283; J2919; J7620

== ENCOUNTER 2024-08-12 17:07 | Outpatient (REF) | payer MEDICARE, MEDICAID, SELFPAY ==
[2024-08-12 16:55] LABS: Anion Gap 3.9 mmol/L (3-11); BUN 17 mg/dL (7-18); CO2 33.1 mmol/L (21.0-32.0); CREATININE 1.3 mg/dL (0.70-1.30); Calcium 9.9 mg/dL (8.5-10.1); Chloride 105 mmol/L (98-107); Estimated GFR 58.37 (mL/min/1.73m2); Glucose 86 mg/dL (74-106); Sodium 142 mmol/L (136-145)
[2024-08-12 16:58] LABS: Abs Immature Grans 0.05 10^3/uL (0.0-0.06); Absolute Basophil Count 0.03 10^3/uL (0.0-0.2); Absolute Eosinophil Count 0.13 10^3/uL (0.0-0.7); Absolute Lymphocyte Count 1.49 10^3/uL (1.2-3.4); Absolute Monocyte Count 0.61 10^3/uL (0.1-0.8); Basophils % 0.4 %; Eosinophils % 1.9 %; HCT 51.3 % (40.0-50.0); HGB 17.2 g/dL (13.5-17.5); Immature Grans % 0.7 %; Lymphocytes % 22.2 %; MCH 29.9 pg (27.0-33.0); MCHC 33.5 % (32.0-36.0); MCV 89 fL (80-95); MPV 10.2 fL (8.0-11.0); Monocytes % 9.1 %; Neutrophils % 65.7 %; Platelet Count 238 10^3/uL (130-400); RBC 5.76 10^6/uL (4.36-5.78); RDW 13.3 % (11.8-14.1); WBC 6.71 10^3/uL (4.4-10.8)
--- OUTSIDE RECORDS SUMMARY | 2024-08-12 17:09 | XMS_ITS | Encounter Summary ---
Author Organization [facility] Address [address] [place] [address] Care Team Providers Care Radio Tower Technician Name Role Phone Beth Roman PA-C Primary Care Provider + Encounter Details Date Type Department Care Team (Late st Contact Info) Description 11/08/2023 Lab Requisition [facility] Pathology & Laboratory Medicine - [facility] [address], [place] [id number] Outr Resulting Lab, Provider Social History Tobacco Use Types Packs/Day Years Used Date Smoking Tobacco: Never Assessed Sex and Gender Information Value Date Recorded Sex Assigned at Not on file Legal Sex Male 11:29 EDT Gender Identity Not on file Sexual Orientation Not on file documented as of this encounter Plan of Treatment Not on file documented as of this encounter Procedures Procedure Name Priority Date/Time Associated Diagnosis Comments PSA TOTAL, DIAGNOSTIC Routine 11/07/2023 15:45 EDT documented in this encounter Results * (ABNORMAL) PSA TOTAL, DIAGNOSTIC (11/07/2023 15:45 EDT) PSA 6.6(H) <=6.5 ng/mL 11/08/2023 17:27 EDT [facility] Blood VENOUS BLOOD / Unknown 11/07/2023 15:45 EDT 11/08/2023 16:39 EDT Narrative [facility] - 11/08/2023 17:27 EDT NOTE: Serum PSA concentration should not be interpreted as absolute evidence for the presence or absence of malignant disease. Assayed on Siemens ADVIA Hapzingaur XPT using chemiluminescent technology.??Values obtained by using different assay methods cannot be used interchangeably. us Provider Outr Resulting Lab CHEMISTRY & BLOOD GA S ORDERABLES Final Result [facility] [address] [place] [address] documented in this encounter Visit Diagnoses Not on filedocumented in this encounter Care Teams Radio Tower Technician Relationship Specialty Start Date End Date Beth Roman PA-C [address] [place] [phone] PCP - General 05/06/21 documented as of this encounter
--- OUTSIDE RECORDS SUMMARY | 2024-08-12 17:09 | XMS_ITS | Referral Summary ---
Author Organization [facility] Address [address] [place] [address] Care Team Providers Care Control Specialist Name Role Phone Beth Roman PA-C Primary Care Provider + Social History Tobacco Use Types Packs/Day Years Used Date Smoking Tobacco: Never Assessed Sex and Gender Information Value Date Recorded Sex Assigned at Not on file Legal Sex Male 11:29 EDT Gender Identity Not on file Sexual Orientation Not on file Plan of Treatment Not on file Insurance [place] Care Teams Control Specialist Relationship Specialty Start Date End Date Beth Roman PA-C [address] [place] [phone] PCP - General 05/06/21
--- OUTSIDE RECORDS SUMMARY | 2024-08-12 17:09 | XMS_ITS | Encounter Summary ---
Author Organization [facility] Address [address] [place] [address] Care Team Providers Care Sewing Machine Maintenance Mechanic Name Role Phone Beth Roman PA-C Primary Care Provider + Encounter Details Date Type Department Care Team (Late st Contact Info) Description 12/13/2023 Lab Requisition [facility] Pathology & Laboratory Medicine - [facility] [address] [place], [place] [id number] Outr Resulting Lab, Provider Social History Tobacco [...] Associated Diagnosis Comments PSA TOTAL, DIAGNOSTIC Routine 12/13/2023 8:20 EDT documented in this encounter Results * PSA TOTAL, DIAGNOSTIC (12/13/2023 8:20 EDT) PSA 5.8 <=6.5 ng/mL 12/14/2023 8:38 EDT [facility] Blood VENOUS BLOOD / Unknown 12/13/2023 8:20 EDT 12/13/2023 22:18 EDT Narrative [facility] - 12/14/2023 8:38 EDT NOTE: Serum PSA concentration should not be interpreted as absolute evidence for the presence or absence of malignant disease. Assayed on Siemens ADVIA Centaur XPT using chemiluminescent technology.??Values obtained by using different assay methods cannot be used interchangeably. us Provider Outr Resulting Lab CHEMISTRY & BLOOD GA S ORDERABLES Final Result [facility] [address] [place] [address] documented in this encounter Visit Diagnoses Not on filedocumented in this encounter Care Teams Sewing Machine Maintenance Mechanic Relationship Specialty Start Date End Date Beth Roman PA-C [address] [place] [phone] PCP - General 05/06/21 documented as of this encounter
--- OUTSIDE RECORDS SUMMARY | 2024-08-12 17:09 | XMS_ITS | Encounter Summary ---
Author Organization [facility] Address [address] [place] [address] Care Team Providers Care Rn Internal Medicine Name Role Phone Beth Roman PA-C Primary Care Provider + Encounter Details Date Type Department Care Team (Late st Contact Info) Description 05/24/2021 Lab Requisition [facility] Pathology & Laboratory Medicine - [facility] [address] [place] [address] Renetta Ruelas, [address] [place], [place] [phone] Epidermal cyst; Benign lipomatous neoplasm of skin and subcutaneous tissue of head, face and neck Social History Tobacco Use Types Packs/Day Years [...] Procedure Name Priority Date/Time Associated Diagnosis Comments SURGICAL PATHOLOGY Today 05/23/2021 14 :35 EDT Epidermal cyst Benign lipomatous neoplasm of skin and subcutaneous tissue of head, face and neck documented in this encounter Results * SURGICAL PATHOLOGY (05/23/2021 14:35 EDT) Note to Patient The following pathology results have been interpreted by your pathologist and may be available to you before your health provider has had the opportunity to review them. Please allow time for your provider to receive these results and explore management options, if applicable. 05/25/2021 13:34 EDT [facility] Final Diagnosis A. 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 B. SKIN OF CHEST, ? SKIN CYST #1, BIOPSY: - Neurofibroma. C. SKIN OF CHEST, ? SKIN CYST #2? , BIOPSY: - Follicular cyst, infundibular type. 05/25/2021 13:34 [facility] Attestation By the signature below, the attending physician certifies that they have 1) personally conducted a gross and/or microscopic examination of the described specimen(s), and/or personally interpreted the results of laboratory testing of the described specimen(s), and 2) personally rendered or confirmed the above diagnosis. 05/25/2021 13:34 [facility] at 1334 Microscopic Description A. Sections consist of irregular portions of subcutaneous adipose tissue. Portions of the tissue consists of lobulated fat. The adipocytes have uniform, bland nuclei. There are interposed areas of a spindle cell proliferation. The spindle cells have elongate nuclei that are without appreciable pleomorphism and atypia. Mitotic activity is not seen. The spindle cells are arranged in a haphazard fashion although some areas have a palisaded appearance. There are vessels of varying size, many of which are congested. There is focal erythrocyte extravasation. B. The epidermis is unremarkable. Within the dermis, there is a spindle cell proliferation that is poorly circumscribed. The spindle cells have uniform, long, wavy nuclei with tapered ends. The cells are associated with thin, wavy collagen and myxoid stoma. There are mast cells evident within the stroma. C. There is a dermal cyst that is lined by stratified squamous epithelium that matures through a granular layer. The cyst is filled with laminated orthokeratin. 05/25/2021 13:34 [facility] Clinical History ? Lipoma posterior neck; skin cysts x2 05/25/2021 13:34 [facility] Gross Description A. Received in formalin labelled with proper patient identification (initials L, J) and container #1 lipoma are two yellow-padron partially encapsulated and ragged portions of tissue (2.0 x 1.2 x 1.0 and 1.8 x 1.5 x 1.0 cm). Serially sectioned and entirely submitted as A1-A2 larger portion and A3 smaller portion. B. Received in formalin labelled with proper patient identification (initials L, J) and skin lesion #1 is a shave biopsy of padron skin (0.7 x 0.5 x 0.2 cm), which bears an eccentric pink-fernando papule (0.4 x 0.2 x 0.2 cm). The resection margin is inked blue and the specimen is trisected and submitted in B1. C. Received in formalin labelled with proper patient identification (initials L, J) and cyst; skin lesion #2 are two friable portions of padron-fernando, granular skin (0.3 x 0.3 x 0.1 and 0.5 x 0.4 x 0.2 cm). The resection margins are inked blue and black, respectively assessment are submitted intact in C1. CESILIA JOHNSON([facility]) 13:16 05/25/2021 13:34 EDT [facility] Performing Lab [facility] 05/25/2021 13:34 T [facility] Scanned Images 05/25/2021 13:34 T [facility] Tissue TISSUE SPECIMEN FROM SKIN / Unknown 05/23/2021 14:35 EDT 05/24/2021 8:25 EDT Tissue specimen (specimen) SPECIMEN FROM SKIN / Unknown 05/23/2021 14:35 EDT 05/24/2021 8:25 EDT Tissue specimen (specimen) SPECIMEN FROM SKIN / Unknown 05/23/2021 14:35 EDT 05/24/2021 8:25 EDT us Renetta Ruelas DO PATHOLOGY ORDERABLES Final Re sult [facility] [address] [place] [address] documented in this encounter Visit Diagnoses Diagnosis Epidermal cyst Sebaceous cyst Benign lipomatous neoplasm of skin and subcutaneous tissue of head, face and neck documented in this encounter Care Teams Rn Internal Medicine Relationship Specialty Start Date End Date Beth Roman PA-C [address] [place] [phone] PCP - General 05/06/21 documented as of this encounter
--- OUTSIDE RECORDS SUMMARY | 2024-08-12 17:09 | XMS_ITS | Continuity of Care Document ---
Author Organization [facility] Address [address] [place] [address] Care Team Providers Care Society Editor Name Role Phone RUMA SALMON PA-C Primary Care Lexy pruett Encounter [facility] [facility] NBR [id number] Date(s): 12/07/23 - 12/07/23 [facility] [address] [place] [address]- us Assessment and Plan Future Appointments Patient Care team information Care Team Personnel Name: RUMA SALMON PA-C Position: No Access Member Role: Primary Care Physician Address: Address: [address] [place] [id number]
--- OUTSIDE RECORDS SUMMARY | 2024-08-12 17:09 | XMS_ITS | Clinical Summary ---
Author Organization [facility] Address [address] [place] [address] Care Team Providers Care Project Safety Manager Name Role Phone Beth Roman PA-C Primary Care Provider + Social History Tobacco Use Types Packs/Day Years Used Date Smoking Tobacco: Never Assessed Sex and Gender Information Value Date Recorded Sex Assigned at Not on file Legal Sex Male 11:29 EDT Gender Identity Not on file Sexual Orientation Not on file Plan of Treatment Health Maintenance Due Date Last Done Comments Hepatitis C Screen 1950 Fall Risk Screening 2017 COVID-19 Vaccine (2023-25 season) 2024 RSV Immunization ( o r 60+ Years) (1 - 1-dose 75+ series) 2027 [place] Member Sub[place] Plan / Payer (Ef fective 2022-Present) Name:Ladi, John Member ID:[id number] Relation to Subscriber:Self Name:Ladi, John Subscriber ID:[id number] Payer ID:[id number] Group ID:Not on file Type:Medicare ACO [place] Address: [address] [place] [phone] Care Teams Project Safety Manager Relationship Specialty Start Date End Date Beth Roman PA-C [address] [place] [phone] PCP - General 05/06/21
--- OUTSIDE RECORDS SUMMARY | 2024-08-12 17:09 | XMS_ITS | Data Portability ---
Author Organization [facility] [place] [address] Care Team Providers Care Chemical Lab Technician Name Role Phone [facility] OFF[facility] Optometris t Assessment No assessment recorded. Plan of Treatment Reminders Order Date Submit Date Provider Last Modified By Organization Details Last Modified Time Details Appointments Acute 20 2024 09:30A Bisi Christensen, DO Not available Not available Not available Follow Up 2024 11:00A Bisi Christensen, DO Not available Not available Not available Medicare Annual Wellness 40 2024 05:20P Bisi BUSTILLOHBURN Not available Not available Not available Lab influenza virus A + B + SARS-CoV- 2 (COVID19) Ag panel, rapid IA, upper respirato ry specimen [address], [address] [place] [address], [id number], 11/14/2023 14:46:55 PSA, serum or plasma 2023 024 [facility] (Registration ), [address] [place] [address] [place], [address], 12/14/2023 11:34:23 lipid panel, serum 2023 [facility] [email or web address] [address] [place] [address] [place], [address], 12/13/2023 09:20:35 CBC w/ auto diff 2024 025 [facility] (Registration ), [address] [place] [address] , [place], [address], 08/12/2024 17:01:31 BMP, serum or plasma 2024 025 [facility] (Registration ), [address] [place] [address] [place], [address], 08/12/2024 11:05:25 urinalysi s, dipstick 2024 025 [email or web address] [facility], [address] [facility], [place], [address], 08/12/2024 15:38:15 Referral gastroent erologist referral - abdominal pain, black stools, FHx of colon CA in father - passed at 77. tx'd pt for duodeniti s w PPI and carafate - please eval for endo/colo n 2024 025 [facility], [address] [place] [address] , [address], [place], [address], 08/12/2024 12:50:40 Procedures None recorded. Surgeries None recorded. Imaging None recorded. Medication Orders azithromy gurmeet 250 mg tablet [address] [facility] #78791, [address] [place] [address], [id number], 02/21/2024 08:02:25 prednison e 20 mg tablet 2023 024 [email or web address] [facility] #19852, [address] [place] [address], [id number], 08/12/2024 09:40:12 benzonata te 100 mg capsule [address] [facility] #90121, [address] [place] [address], [id number], 02/21/2024 08:02:20 ketoconaz ole 2 % topical cream [address] [facility] #33752, [address], [place], [id number], 02/21/2024 08:38:05 prednison e 50 mg tablet 2023 024 [facility], [address] [place], [address], 08/12/2024 09:40:30 Augmentin 875 mg-125 mg tablet [address] [facility], [address] [place], [address], 08/12/2024 09:39:00 ipratropi um 0.5 mg-albute rol 3 mg (2.5 mg base)/3 mL nebulizat ion soln 2023 024 [email or web address] [facility] #41986, [address], [place], [id number], 03/13/2024 10:03:08 prednison e 20 mg tablet [address] [facility]11267, [address], [place], [id number], 08/12/2024 09:40:12 prednison e 10 mg tablet [address] [facility] #01361, [address], [place], [id number], 08/12/2024 09:40:07 Augmentin 875 mg-125 mg tablet [address] [facility] #11245, [address], [place], [id number], 08/12/2024 09:39:00 albuterol sulfate HFA 90 mcg/actua tion aerosol inhaler 2023 024 [facility], [address] [place], [address], 03/13/2024 09:56:02 pantopraz ole 40 mg tablet,de layed release [address] [facility] #26505, [address] [place], [place], [id number], 08/12/2024 10:17:24 Carafate 1 gram tablet [address] [facility] #68946, [address] [place], [place], [id number], 08/12/2024 10:17:23 Patient TargetsNo targets recorded. Patient Instructions Encounter Date Encounter Id Patient Instructions Last Modified By Organization Details Last Modified Time 11/14/2023 [id number] Tee: start extended dose of prednisone, start your new antibiotic, use your nebulizer three times a day while you are sick, start cough pill three times a day: benzonatate. come back if you dont improve [email or web address] Not available 11/14/2023 14:54:01 03/13/2024 [id number] 1. You were give n a breathing treatment while here and your first dose of prednisone as well as your antibiotic. 2. You will take your prednisone daily in the morning for total of 5 days. You will take your antibiotic morning and evening for 5 days. 3. I have also refilled your albuterol inhaler. 4. I do expect these medication should begin to improve your symptoms. If you are not improving, worsening or develop other concerning symptoms please seek reevaluation as needed. [email or web address] Not available 03/13/2024 09:56:51 Reason for Referral [employer] Referral for Abdominal pain abdominal pain, black stools, FHx of colon CA in father - passed at 75. tx'd pt for duodenitis w PPI and carafate - please eval for endo/colon Referring Physician: Gordon Christensen, Family Medicine, Encounter Date: 08/12/2024 Results Created Date Observation Date Name Description Value Unit Range Abnormal Flag Note LastModifiedBy Organization Detail LastModifiedTime 10/29/19 24 10/29/2023 influ jorge virus A + B + SARS- CoV-2 (COVI D19) Ag panel , rapid IA, upper respi rator y speci men Influenza A negati ve Not Available [address], [place], [address], 10/29/2023 10:47:18 10/29/19 24 10/29/2023 influ jorge virus A + B + SARS- CoV-2 (COVI D19) Ag panel , rapid IA, upper respi rator y speci men Influenza B negati ve Not Available [address], [place], [address], 10/29/2023 10:47:18 10/29/19 24 10/29/2023 influ jorge virus A + B + SARS- CoV-2 (COVI D19) Ag panel , rapid IA, upper respi rator y speci men SARS-COV-2 negati ve Not Available [address], [place], [address], 10/29/2023 10:47:18 11/07/19 24 11/07/2023 COMPR EHENS SHARIF METAB OLIC PANEL calcium 8.9 mg/dL 8.5-10 .1 normal Not Available [address] [place], [address] 11/09/2023 10:18:35 11/07/19 24 11/07/2023 COMPR EHENS SHARIF METAB OLIC PANEL glucose 95 mg/dL 74-106 normal Not Available Maris paulson [address] [facility] [place], [address] 11/09/2023 10:18:35 11/07/19 24 11/07/2023 COMPR EHENS SHARIF METAB OLIC PANEL BUN 19 mg/dL 7-18 high Not Available Maris paulson [address] [place], [address] 11/09/2023 10:18:35 11/07/19 24 11/07/2023 COMPR EHENS SHARIF METAB OLIC PANEL creatinine 1.3 mg/dL 0.70-1 .30 normal Not Available [address] [place], [address] 11/09/2023 10:18:35 11/07/19 24 11/07/2023 COMPR EHENS SHARIF METAB OLIC PANEL estimated GFR 58.73 mL/min /1.73m 2 The eGFR is calcu lated from a serum creat inine using the CKD-E PI 2020 equat ion. Other varia bles requi red for the equat ion are gende r and age; this equat ion does not inclu de a race coeff icien t. This equat ion has simil ar overa ll perfo rmanc e to previ ous equat ions excep t value s may diffe r, in parti cular , in patie nts with highe r value s of eGFR and young er-ag ed adult s. Not Available [address] [place], [address] 11/09/2023 10:18:35 11/07/19 24 11/07/2023 COMPR EHENS SHARIF METAB OLIC PANEL total protein 7.0 g/dL 6.4-8. 2 normal Not Available [address] [place], [address] 11/09/2023 10:18:35 11/07/19 24 11/07/2023 COMPR EHENS SHARIF METAB OLIC PANEL albumin 3.8 g/dL 3.4-5. 0 normal Not Available [address] [place], [address] 11/09/2023 10:18:35 11/07/19 24 11/07/2023 COMPR EHENS SHARIF METAB OLIC PANEL bilirubin, total 0.4 mg/dL 0.2-1. 0 normal Not Available [address] [place], [address] 11/09/2023 10:18:35 11/07/19 24 11/07/2023 COMPR EHENS SHARIF METAB OLIC PANEL alk phos 79 U/L 46-116 normal Not Available [address] [place], [address] 11/09/2023 10:18:35 11/07/19 24 11/07/2023 COMPR EHENS SHARIF METAB OLIC PANEL sodium 141 mmol/ L 136-14 5 normal Not Available [address] [place], [address] 11/09/2023 10:18:35 11/07/19 24 11/07/2023 COMPR EHENS SHARIF METAB OLIC PANEL potassium 4.3 mmol/ L 3.5-5. 1 normal Not Available [address] [place], [address] 11/09/2023 10:18:35 11/07/19 24 11/07/2023 COMPR EHENS SHARIF METAB OLIC PANEL chloride 103 mmol/ L 98-107 normal Not Available [address] [place], [address] 11/09/2023 10:18:35 11/07/19 24 11/07/2023 COMPR EHENS SHARIF METAB OLIC PANEL CO2 28.8 mmol/ L 21.0-3 2.0 normal Not Available [address] [place], [address] 11/09/2023 10:18:35 11/07/19 24 11/07/2023 COMPR EHENS SHARIF METAB OLIC PANEL anion gap 9.2 mmol/ L 3-11 normal Not Available [address] [place], [address] 11/09/2023 10:18:35 11/07/19 24 11/07/2023 COMPR EHENS SHARIF METAB OLIC PANEL AST 25 U/L 15-37 normal Not Available Maris paulson [address] [place], [address] 11/09/2023 10:18:35 11/07/19 24 11/07/2023 COMPR EHENS SHARIF METAB OLIC PANEL ALT 34 U/L 16-63 normal Not Available Maris paulson [address] [place], [address] 11/09/2023 10:18:35 11/07/19 24 11/07/2023 LIPID 2 cholesterol 222 mg/dL <200 high Not Available [address] [place], [address] 11/09/2023 10:18:36 11/07/19 24 11/07/2023 LIPID 2 triglyceride 412 mg/dL <150 high Not Available [address] [place], [address] 11/09/2023 10:18:36 11/07/19 24 11/07/2023 LIPID 2 HDL cholesterol 32 mg/dL 40-60 low Not Available [address] [place], [address] 11/09/2023 10:18:36 11/07/19 24 11/07/2023 LIPID 2 calculated LDL TNP mg/dL <100 Trigl yceri de great er than 400 mg/dL ,LDL calcu latio n inval id. Measu red LDL added by refle x. Not Available [address] [place], [address] 11/09/2023 10:18:36 11/07/19 24 11/07/2023 HEMOG LOBIN A1C hemoglobin A1C 5.6 % <5.7 Refer ence Range s <5.7 Jennyfer l 5.7-6 .4% Predi abete s 6.5% or great er Diagn ostic for diabe cherelle (if confi rmed) Refer ences : 1. Ameri can Diabe cherelle Assoc iatio n. Clas sific ation and Diagn osis of Diabe cherelle. Diabe cherelle Care 2018 2(Sup pleme nt 1):S1 3-s28 . Not Available [address] [place], [address] 11/09/2023 10:19:08 11/07/19 24 11/07/2023 LIPID 2 cholesterol 222 mg/dL <200 high Not Available [address] [place], [address] 11/09/2023 10:19:29 11/07/19 24 11/07/2023 LIPID 2 triglyceride 412 mg/dL <150 high Not Available [address] [place], [address] 11/09/2023 10:19:29 11/07/19 24 11/07/2023 LIPID 2 HDL cholesterol 32 mg/dL 40-60 low Not Available Carlee holland[address] [place], [address] 11/09/2023 10:19:29 11/07/19 24 11/07/2023 LIPID 2 calculated LDL TNP mg/dL <100 Trigl yceri de great er than 400 mg/dL ,LDL calcu latio n inval id. Measu red LDL added by refle x. Not Available [address] [place], [address] 11/09/2023 10:19:29 11/07/19 24 11/07/2023 DIREC T LDL CHOL direct LDL chol 113 mg/dL <100 high Not Available [address] [place], [address] 11/09/2023 10:19:29 11/07/19 24 11/08/2023 PSA, SCREE AUDRA PSA, screening 6.6 NG/mL <=6.5 abnormal NOTE: Serum PSA gordo ntrat ion shoul d not be inter prete d as absol nightmute evide nce for the prese nce or absen ce of yudi horta . Assay ed on Sieme ns [facility] Cent[facility] ur XPT using chemi lumin escen t techn ology . Value s obtai karen by using diffe rent assay metho ds canno t be used inter cervantes eably . Test perfo rmed or refer red by [facility] nt [facility] r [address] [address] Not Available [facility] (Registration ) [address] [place] [address] [place], [address], 11/09/2023 10:26:40 11/14/19 24 11/14/2023 influ jorge virus A + B + SARS- CoV-2 (COVI D19) Ag panel , rapid IA, upper respi rator y speci men Influenza A negati ve Not Available [address], [address], 11/14/2023 14:21:47 11/14/19 24 11/14/2023 influ jorge virus A + B + SARS- CoV-2 (COVI D19) Ag panel , rapid IA, upper respi rator y speci men Influenza B negati ve Not Available [facility] [address] [place], [address], 11/14/2023 14:21:47 11/14/19 24 11/14/2023 influ jorge virus A + B + SARS- CoV-2 (COVI D19) Ag panel , rapid IA, upper respi rator y speci men SARS-COV-2 negati ve Not Available [address], [address], 11/14/2023 14:21:47 11/19/19 24 11/19/2023 COLOG UARD cologuard result reportable NEGATI VE negati ve normal NEGAT SHARIF TEST RESUL T. A negat sharif Colog uard resul t indic ates a low likel ihood that a color ectal cance r (CRC) or advan meghna adeno ma (roula omato us polyp s with more advan meghna pre-m align ant featu res) is prese nt. The chan e that a perso n with a negat sharif Colog uard test has a color ectal cance r is less than 1 in 1500 (nega tive predi ctive value >99.9 %) or has an advan meghna adeno ma is less than 5.3% (nega tive predi ctive value 94.7% ). These data are based on a prosp ectiv e cross -sect ional study of 10,00 0 indiv idual s at the colony ge risk for color ectal cance r who were scree karen with both Colog uard and colon oscop y. (Impe riale T. et al, N Engl J Med 2014; 370(1 4):12 86-12 97) The jennyfer l value (refe rence range ) for this assay is negat sharif. COLOG UARD RE-SC WILL GAXIOLA RECOM MENDA TION: Perio dic color ectal cance r scree audra is an impor tant part of preve ntive healt hcare for asymp tomat ic indiv idual s at [facility] risk for color ectal cance r. Follo wing a negat sharif Colog uard resul t, the Ameri can Cance r Socie ty and U.S. Multi -Soci ety Task Force scree audra guide lines recom mend a Colog uard re-sc reenaeem gaxiola inter trena of 3 years . Refer ences : Ameri can Cance r Socie ty Guide line for Color ectal Cance r Scree audra: https ://ww w.can cer.o rg/ca ncer/ colon -rect al-ca ncer/ detec tion- diagn osis- stagi ng/ac s-rec ommen datio ns.ht ml.; Forrest CALLE, Matteo huffman CR, Joya magdaleno JK, Color ectal Cance r Scree audra: Recom menda tions for Physi cians and Patie nts from the U.S. Multi -Soci ety Task Force on Color ectal Cance r Scree audra , Am Kaden rojas 2017; 112:1 016-1 030. TEST DESCR IPTIO N: [place] site algor ithmi c vitor sis of stool DNA-b francis arriaga with hemog lobin immun oassa y. Quant itati ve value s of indiv idual bioma rkers are not repor table and are not assoc iated with indiv idual bioma rker resul t refer ence range s. Colog uard is inten ded for color ectal cance r scree audra of adult s of eithe r sex, 45 years or older , who [facility] for color ectal cance r (CRC) . Colog uard has been appro perry for use by the U.S. FDA. The perfo rmanc e of Colog uard was estab lishe d in a cross secti onal study of [facility] sk adult s aged 50-84 . Colog uard perfo rmanc e in patie nts ages 45 to 49 years was estim ated by luigi-reagan adler sis of near- age group s. Colon oscop ies perfo rmed for a posit sharif resul t may find as the most clini grzegorz signi fican t lesio n: color ectal cance r [4.0% ], advan meghna adeno ma (incl uding sessi le jonah adan polyp s great er than or equal to 1cm diame ter) [20%] or non- advan meghna adeno ma [31%] ; or no color ectal neopl donna [45%] . These estim ates are deriv ed from a prosp ectiv e cross -sect ional scree audra study of 0 indiv idual [facility] risk for color ectal cance r who were scree karen with both Colog uard and colon oscop y. (Cinthya Seymour et al, N Engl J Med 2014; 370(1 4):12 86-12 97.) Colog uard may produ ce a false negat sharif or false posit sharif resul t (no color ectal cance r or preca ncero us polyp prese nt at colon oscop y follo w up). A negat sharif Colog uard test resul t does not guara ntee the absen ce of CRC or advan meghna adeno ma (pre- cance r). The curre nt Colog uard scree audra inter trena is every 3 years . (Amer ican Cance r Socie ty and U.S. Multi -Soci ety Task Force ). Colog uard perfo rmanc e data in a 0 patie nt pivot al study using colon oscop y as the refer ence metho d can be acces sed at the follo wing locat ion: www.e xactl abs.c om/re ab . Addit ional descr iptio n of the Colog uard test proce ss, warni ngs and preca ution s can be found at www.c lamin liu.c om. Not Available [employer] (Cologuard Orders Only) [address], [place], [address], 11/28/2023 11:50:48 12/13/1912/13/2023 LIPID 2 cholesterol 241 mg/dL <200 high Not Available [facility] [address] [place] [address] [place], [address] 12/13/2023 15:29:29 12/13/19 24 12/13/2023 LIPID 2 triglyceride 165 mg/dL <150 high Not Available [address] [place], [address] 12/13/2023 15:29:29 12/13/19 24 12/13/2023 LIPID 2 HDL cholesterol 46 mg/dL 40-60 Not Available [address] [place], [address] 12/13/2023 15:29:29 12/13/19 24 12/13/2023 LIPID 2 calculated LDL 162 mg/dL <100 high Natio nal Mary stero l Educa tion Progr am (NCEP -ATPI II) class ifica tions : Mary stero l <200 mg/dL Yocasta able Mary stero l 200-2 39 mg/dL Borde rline High Mary stero l >or=2 40 mg/dL High HDL <40 mg/dL Low HDL >or=6 0 mg/dL High LDL <100 mg/dL Optim al LDL 100-1 29 mg/dL Near Optim al/Ab ove Optim al LDL 130-1 59 mg/dL Borde rline High LDL 160-1 89 mg/dL High LDL >or=1 90 mg/dL Very High *The above refer ence range is for adult s 18 years or older . Not Available [address] [place], [address] 12/13/2023 15:29:29 12/13/19 24 12/14/2023 PSA, DIAGN OSTIC PSA, diagnostic 5.8 NG/mL <=6.5 NOTE: Serum PSA gordo ntrat ion shoul d not be inter prete d as absol nightmute evide nce for the prese nce or absen ce of yudi horta se. Assay ed on Sieme ns [facility]IA Centa ur XPT using chemi lumin escen t techn ology . Value s obtai karen by using diffe rent assay metho ds canno t be used inter cervantes eably . Test perfo rmed or refer red by [facility] nt [facility] Cent[facility] r [address], [place] [facility] [place] [address] Not Available [address] [place], [address] 12/14/2023 11:34:23 12/16/19 24 12/16/2023 COMPL ETE BLOOD COUNT W/DIF F WBC 7.81 10_3/ uL 4.4-10 .8 normal Not Available [address] [place], [address] 12/16/2023 06:29:09 12/16/19 24 12/16/2023 COMPL ETE BLOOD COUNT W/DIF F RBC 5.67 10_6/ uL 4.36-5 .78 normal Not Available [address] [place], [address] 12/16/2023 06:29:09 12/16/19 24 12/16/2023 COMPL ETE BLOOD COUNT W/DIF F HGB 16.8 g/dL 13.5-1 7.5 normal Not Available [address] [place], [address] 12/16/2023 06:29:09 12/16/19 24 12/16/2023 COMPL ETE BLOOD COUNT W/DIF F HCT 51.0 % 40.0-5 0.0 high Not Available [address] [place], [address] 12/16/2023 06:29:09 12/16/19 24 12/16/2023 COMPL ETE BLOOD COUNT W/DIF F MCV 90 fL 80-95 normal Not Available Maris [address] [facility] [place], [address] 12/16/2023 06:29:09 12/16/19 24 12/16/2023 COMPL ETE BLOOD COUNT W/DIF F MCH 29.6 pg 27.0-3 3.0 normal Not Available [address] [place], [address] 12/16/2023 06:29:09 12/16/19 24 12/16/2023 COMPL ETE BLOOD COUNT W/DIF F MCHC 32.9 % 32.0-3 6.0 normal Not Available [address] [place], [address] 12/16/2023 06:29:09 12/16/19 24 12/16/2023 COMPL ETE BLOOD COUNT W/DIF F RDW 13.1 % 11.8-1 4.1 normal Not Available [address] [place], [address] 12/16/2023 06:29:09 12/16/19 24 12/16/2023 COMPL ETE BLOOD COUNT W/DIF F platelet count 239 10_3/ uL 130-40 0 normal Not Available [address] [place], [address] 12/16/2023 06:29:09 12/16/19 24 12/16/2023 COMPL ETE BLOOD COUNT W/DIF F MPV 9.1 fL 8.0-11 .0 normal Not Available [address] [place], [address] 12/16/2023 06:29:09 12/16/19 24 12/16/2023 COMPL ETE BLOOD COUNT W/DIF F neutrophils % 48.6 % Not Available [address] [place], [address] 12/16/2023 06:29:09 12/16/19 24 12/16/2023 COMPL ETE BLOOD COUNT W/DIF F lymphocytes % 31.2 % Not Available [facility] [address] [place], [address] 12/16/2023 06:29:09 12/16/19 24 12/16/2023 COMPL ETE BLOOD COUNT W/DIF F monocytes % 9.3 % Not Available [address] [place], [address] 12/16/2023 06:29:09 12/16/19 24 12/16/2023 COMPL ETE BLOOD COUNT W/DIF F eosinophils % 9.5 % Not Available [address] [place], [address] 12/16/2023 06:29:09 12/16/19 24 12/16/2023 COMPL ETE BLOOD COUNT W/DIF F basophils % 1.0 % Not Available [address] [place], [address] 12/16/2023 06:29:09 12/16/19 24 12/16/2023 COMPL ETE BLOOD COUNT W/DIF F immature grans % 0.4 % Not Available [address] [place], [address] 12/16/2023 06:29:09 12/16/19 24 12/16/2023 COMPL ETE BLOOD COUNT W/DIF F nucleated RBC 0.0 % 0.0-0. 3 normal Not Available [address] [place], [address] 12/16/2023 06:29:09 12/16/19 24 12/16/2023 COMPL ETE BLOOD COUNT W/DIF F absolute neutrophil count 3.79 10_3/ uL 1.2-6. 7 normal Not Available [address] [place], [address] 12/16/2023 06:29:09 12/16/19 24 12/16/2023 COMPL ETE BLOOD COUNT W/DIF F absolute lymphocyte count 2.44 10_3/ uL 1.2-3. 4 normal Not Available [address] [place], [address] 12/16/2023 06:29:09 12/16/19 24 12/16/2023 COMPL ETE BLOOD COUNT W/DIF F absolute monocyte count 0.73 10_3/ uL 0.1-0. 8 normal Not Available [address] [place], [address] 12/16/2023 06:29:09 12/16/19 24 12/16/2023 COMPL ETE BLOOD COUNT W/DIF F absolute eosinophil count 0.74 10_3/ uL 0.0-0. 7 high Not Available [address] [place], [address] 12/16/2023 06:29:09 12/16/19 24 12/16/2023 COMPL ETE BLOOD COUNT W/DIF F absolute basophil count 0.08 10_3/ uL 0.0-0. 2 normal Not Available [address] [place], [address] 12/16/2023 06:29:09 12/16/19 24 12/16/2023 COMPR EHENS SHARIF METAB OLIC PANEL calcium 9.0 mg/dL 8.5-10 .1 normal Not Available [address] [place], [address] 12/16/2023 07:02:10 12/16/19 24 12/16/2023 COMPR EHENS SHARIF METAB OLIC PANEL glucose 99 mg/dL 74-106 normal Not Available Maris paulson [address] [place], [address] 12/16/2023 07:02:10 12/16/19 24 12/16/2023 COMPR EHENS SHARIF METAB OLIC PANEL BUN 18 mg/dL 7-18 normal Not Available Maris [address] [place], [address] 12/16/2023 07:02:10 12/16/19 24 12/16/2023 COMPR EHENS SHARIF METAB OLIC PANEL creatinine 1.3 mg/dL 0.70-1 .30 normal Not Available [address] [place], [address] 12/16/2023 07:02:10 12/16/19 24 12/16/2023 COMPR EHENS SHARIF METAB OLIC PANEL estimated GFR 58.73 mL/min /1.73m 2 The eGFR is calcu lated from a serum creat inine using the CKD-E PI 2020 equat ion. Other varia bles requi red for the equat ion are gende r and age; this equat ion does not inclu de a race coeff icien t. This equat ion has simil ar overa ll perfo rmanc e to previ ous equat ions excep t value s may diffe r, in parti cular , in patie nts with highe r value s of eGFR and young er-ag ed adult s. Not Available [address] [place], [address] 12/16/2023 07:02:10 12/16/19 24 12/16/2023 COMPR EHENS SHARIF METAB OLIC PANEL total protein 7.3 g/dL 6.4-8. 2 normal Not Available [address] [place], [address] 12/16/2023 07:02:10 12/16/19 24 12/16/2023 COMPR EHENS SHARIF METAB OLIC PANEL albumin 4.1 g/dL 3.4-5. 0 normal Not Available [address] [place], [address] 12/16/2023 07:02:10 12/16/19 24 12/16/2023 COMPR EHENS SHARIF METAB OLIC PANEL bilirubin, total 0.6 mg/dL 0.2-1. 0 normal Not Available [address] [place], [address] 12/16/2023 07:02:10 12/16/19 24 12/16/2023 COMPR EHENS SHARIF METAB OLIC PANEL alk phos 86 U/L 46-116 normal Not Available [address] [place], [address] 12/16/2023 07:02:10 12/16/19 24 12/16/2023 COMPR EHENS SHARIF METAB OLIC PANEL sodium 144 mmol/ L 136-14 5 normal Not Available [address] [place], [address] 12/16/2023 07:02:10 12/16/19 24 12/16/2023 COMPR EHENS SHARIF METAB OLIC PANEL potassium 4.3 mmol/ L 3.5-5. 1 normal Not Available [address] [place], [address] 12/16/2023 07:02:10 12/16/19 24 12/16/2023 COMPR EHENS SHARIF METAB OLIC PANEL chloride 105 mmol/ L 98-107 normal Not Available [address] [place], [address] 12/16/2023 07:02:10 12/16/19 24 12/16/2023 COMPR EHENS SHARIF METAB OLIC PANEL CO2 30.8 mmol/ L 21.0-3 2.0 normal Not Available [address] [place], [address] 12/16/2023 07:02:10 12/16/19 24 12/16/2023 COMPR EHENS SHARIF METAB OLIC PANEL anion gap 8.2 mmol/ L 3-11 normal Not Available [address] [place], [address] 12/16/2023 07:02:10 12/16/19 24 12/16/2023 COMPR EHENS SHARIF METAB OLIC PANEL AST 20 U/L 15-37 normal Not Available Maris paulson [address] [place], [address] 12/16/2023 07:02:10 12/16/19 24 12/16/2023 COMPR EHENS SHARIF METAB OLIC PANEL ALT 31 U/L 16-63 normal Not Available aMris [address] [place], [address] 12/16/2023 07:02:10 12/16/19 24 12/16/2023 TROPO BENEDICT I troponin I < 50 NG/L < or =60 Not Available [address] [place], [address] 12/16/2023 07:02:10 08/12/19 25 08/12/2024 urina lysis , dipst ick Leukocytes Negati ve Not Available [facility] [address] [place], [address], 08/12/2024 14:16:49 08/12/19 25 08/12/2024 urina lysis , dipst ick Nitrite negati ve Not Available [facility] [address] [place], [address], 08/12/2024 14:16:49 08/12/19 25 08/12/2024 urina lysis , dipst ick Urobilinogen .2 Not Available [address], [address], 08/12/2024 14:16:49 08/12/19 25 08/12/2024 urina lysis , dipst ick Protein Trace Not Available [address], [address], 08/12/2024 14:16:49 08/12/19 25 08/12/2024 urina lysis , dipst ick pH 5.0 Not Available [address], [address], 08/12/2024 14:16:49 08/12/19 25 08/12/2024 urina lysis , dipst ick Blood Negati ve Not Available [address], [address], 08/12/2024 14:16:49 08/12/19 25 08/12/2024 urina lysis , dipst ick Specific [place] 1.010 Not Available [address], [address], 08/12/2024 14:16:49 08/12/19 25 08/12/2024 urina lysis , dipst ick Ketone Negati ve Not Available [address], [address], 08/12/2024 14:16:49 08/12/19 25 08/12/2024 urina lysis , dipst ick Bilirubin Negati ve Not Available [address], [address], 08/12/2024 14:16:49 08/12/19 25 08/12/2024 urina lysis , dipst ick Glucose Negati ve Not Available [address], [address], 08/12/2024 14:16:49 08/12/19 25 08/12/2024 urina lysis , dipst ick Appearance Clear Not Available [facility] [address] [place], [address], 08/12/2024 14:16:49 08/12/19 25 08/12/2024 urina lysis , dipst ick Color Pale Yellow Not Available [facility] [address] [place], [address], 08/12/2024 14:16:49 10/29/19 24 10/29/2023 XR, chest , 2 view No observ ation record ed. [facility] [address], [place], [address], 10/29/2023 12:46:07 10/29/19 24 10/29/2023 XR, chest , 2 view Patien t Name: Shanique Heard Unit #: [id number] Loc: PATRICIA [facility] er: MARQUITA MATIAS t #: [id number] Status : REG CLI Primar y Care Provid er: Diana paulson,Kirsten LOMAS Date of Exa m: Sex: M Admiss ion Date: : 1949 Age: 73 Exam(s ) XR CHEST 2V PA LATERA L EXAM: XR CHEST 2V PA LATERA L CLINIC AL HISTOR Y: FR[place]LIN, R06.09 ; H/O COPD, X2-3 weeks of cough, SOB TECHNI QUE: 2D digita l imagin g was perfor med. Two views. COMPAR DORIAN: CR,XR XR PORTAB LE CHEST AP from 2021 FINDIN GS: HEART: Normal size. Aorta: Not dilate d. PULMON BRANDIE VASCUL ATURE: Normal . LUNGS: Clear. PLEURA L SPACE: No pleura l effusi on or pneumo thorax . BONE:U nremar kable for age. Soft tissue s: Unrema rkable . IMPRES JUSTIN: No acute abnorm ality. DATA REPOSI TORY: RADIAT ION DOSE DELIVE RED: Ordere d By: MARQUITA MATIAS CC: ------ ------ ------ ------ ------ ------ ------ ------ ------ ------ ------ ------ - Dictat ed By: Ellen Leigh 1201 120 Transc ribed By: Robin Delacruz 120 This is privil eged, confid ential inform ation intend ed only for the provid er named. Any use or distri bution by any person other than this provid er is strict ly prohib ited. If you receiv e this report in error, please notify us immedi ately at and return the origin al report to us at the addres s above. Thank- you. [email or web address] [facility] [address], [place], [address], 10/29/2023 12:39:20 10/29/19 24 05/09/2021 colon oscop y outco mes repor ting* No observ ation record ed. BAR[facility] Not Available 2023 18:28:58 11/16/19 24 11/16/2023 CT, chest , w/o contr ast Patien t Name: Anayeli murphyShanique salas Unit #: [id number] Loc: DI Orderi ng Provid er: Kirsten Ortiz rn Accoun t #: [id number] Status : REG CLI Primar y Care Provid er: Kirsten Ortiz rn Date of Exa m: Sex: M : 1949 Age: 73 Exam(s ) a CT:CT chest wo Exam(s ) CT CHEST WO EXAM: CT CHEST WO CLINIC AL HISTOR Y: COPD,J 44.9,C URRENT SMOKER ,SCREE AUDRA FOR CA. TECHNI QUE: Multi planar recons tructi ons were perfor med. CONTRA ST MATERI AL: None COMPAR DORIAN: CT CT CHEST LUNG CANCER SCREEN from 2021 CR,XR XR PORTAB LE CHEST AP from 2021 CR XR CHEST 2V PA LATERA L from 2023 FINDIN GS: CHEST: LUNGS: There is an unchan ged calcif ied granul kaleigh in the left lung base train gateman ior basal segmen t. Mild increa sed subple ural markin gs are again noted in the train gateman ior basal segmen t of the right lower lobe, unchan ged from CT scan of 2021. In the inferi or aspect of the latera l segmen t of the right middle lobe there is slight ly increa sed benign -appea ring markin gs which were not previo usly presen t (serie s 2/imag e 124). There are no pleura l effusi ons on either side. MEDIAS TINUM: There is no obviou s hilar nor medias tinal adenop athy. Small calcif ied lymph node in the left hilum again noted, this being the side with the benign left lower lobe granul kaleigh. No calcif ied lymph nodes in the right hilum nor in the subcar inal region or elsewh ere in the medias tinum. Visual ized thyroi d unrema rkable . CARDIA C: Heart size is normal . There is no perica rdial effusi on.Barak iber of the thorac ic aorta is within normal limits . VISUAL IZED UPPER ABDOME N:Righ t adrena l gland unrema rkable . Hypode nse nodule in the left adrena l gland measur ing 3 x 1.8 cm is unchan ged. Probab ly adenom a. OSSEOU S: No signif icant osseou s lesion s.. IMPRES JUSTIN: 1. Stable benign -appea ring findin gs with the except ion of a new small nodula r infilt rate in the most latera l aspect of the right middle lobe, inferi maulik. This is fissur e relate d. 2. No pleura l effusi ons nor signif icant intrat horaci c adenop athy. 3. Lung rads catego ry: 1-caridad gn appear ance. Nodule with low likeli barton of becomi ng active cancer . Recomm end repeat scan in 1 year RADIAT ION DOSE DELIVE RED: Total DLP DATA REPOSI TORY: All CT scans at this facili ty are submit adan to the Nation al Radiol ogy Data Regist ry (NRDR) Dose Index Regist ry (DIR) with the [place] of Radiol ogy (ACR). RADIAT ION OPTIMI ZATION : All CT scans at this facili ty use at least one of these dose optimi zation techni ques: automa adan exposu re contro l; mA and/or kV adjust ment per patien t size (inclu josseline target ed exams where dose is matche d to clinic al indica tion); or iterat sharif recons tructi on. 411-0 013: Total DLP = 0.00 mGy-cm Ordere d By: Diana paulson,Kirsten LOMAS CC: ------ ------ ------ ------ ------ ------ ------ ------ ------ ------ ------ ------ ---- Dictat ed By: Gurwinder Reyes M.D. 1320 1320 Transc ribed By: Eric HERNANDEZ,Toña hatfield 1320 This is privil eged, confid ential inform ation intend ed only for the provid er named. Any use or distri bution by any person other than this provid er is strict ly prohib ited. If you receiv e this report in error, please notify us immedi ately at and return the origin al report to us at the addres s above. Thank- you. [email or web address] [facility] [address] [facility] , [place], [address] 02/04/2024 13:25:55 12/16/19 24 12/16/2023 vrad repor t Patien t Name: hSanique Heard Unit #: [id number] Loc: ER Orderi ng Provid er: Accoun t #: [id number] Status : REG ER Primar y Care Provid er: Diana paulson,Kirsten LOMAS Date of Exa m: Sex: M : 1949 Age: 73 Exam(s ) PROCED URE INFORM ATION: Exam: XR Chest Exam date and time: 024 6:12 AM Age: 73 years old Clinic al indica tion: Cough and shortn ess of breath ; Patien t HX: Cough, SOB, R/O pneumo brennan TECHNI QUE: Imagin g protoc ol: Radiol ogic exam of the chest. Views: 1 view. COMPAR DORIAN: No releva nt prior studie s are availa ble for compar dorian. FINDIN GS: Lungs: Minima l streak y densit ies at the lung bases, likely scarri ng or atelec tasis. Pleura l spaces : No large pleura l effusi on seen. Heart/ Medias tinum: No cardio megaly . Bones/ joints : Grossl y unrema rkable . IMPRES JUSTIN: No acute findin gs to explai n report ed sympto ms. Dictat ed and Cesar lawton d by: Brooke Jara MD. Orderi ng:Dorita Membreno MD Access ion#=[id number] Ordere d By: CC: ------ ------ ------ ------ ------ ------ ------ ------ ------ ------ ------ ------ ---- Dictat ed By: Report s vrad 0612 0720 Transc ribed By: Patricia Grace 611 This is privil eged, confid ential inform ation intend ed only for the provid er named. Any use or distri bution by any person other than this provid er is strict ly prohib ited. If you receiv e this report in error, please notify us immlida vazquezly at and return the origin al report to us at the addres s above. Thank- you. [email or web address] [facility] [address] [place], [address] 12/17/2023 07:56:24 12/16/19 24 12/16/2023 x-ray imagi ng westley cao Patien t Name: Shanique Heard kathie Vanessa Unit #: [id number] Loc: ER Orderi ng Provid er: Siri Cordero DO Accoun t #: [id number] Status : DEP ER Primar y Care Provid er: Diana paulson,Kirsten Hawk PA Date of Exa m: Sex: M Admiss ion Date: : 1949 Age: 73 Exam(s ) XR PORTAB LE CHEST AP EXAM: XR PORTAB LE CHEST AP CLINIC AL HISTOR Y: cough, SOB, r/o pneumo brennan TECHNI QUE: 2D digita l imagin g was perfor med of the chest. Two images were obtain ed. AP views were obtain ed. COMPAR DORIAN: CR,XR XR PORTAB LE CHEST AP from 2021 CR XR CHEST 2V PA LATERA L from 2023 FINDIN GS: MEDIAS TINUM: Normal . HEART: Normal . PULMON BRANDIE VASCUL ATURE: Normal . LUNGS: Clear. PLEURA L SPACE: No pleura l effusi on or pneumo thorax . BONE:W ithin normal limits for the patien t's age. OTHER FINDIN GS:Nor mal. IMPRES JUSTIN: No acute pulmon brandie findin gs. DATA REPOSI TORY: RADIAT ION DOSE DELIVE RED: Ordere d By: Siri Cordero DO CC: ------ ------ ------ ------ ------ ------ ------ ------ ------ ------ ------ ------ - Dictat ed By: Andrew Stewart M.D. 1147 1147 Transc ribed By: Andrew Stewart 1147 This is privil eged, confid ential inform ation intend ed only for the provid er named. Any use or distri bution by any person other than this provid er is strict ly prohib ited. If you receiv e this report in error, please notify us immedi ately at and return the origin al report to us at the addres s above. Thank- you. [email or web address] [facility] [address], [place], [address] 12/17/2023 07:56:25 02/09/20 24 11/16/2023 CT imagi ng repor t Patien t Name: Shanique Heard Unit #: [id number] Loc: DI Orderi ng Provid er: Diana paulson,Kirsten LOMAS Accoun t #: [id number] Status : REG CLI Primar y Care Provid er: Kirsten Ortiz rn Date of Exa m: Sex: M : 1949 Age: 73 Exam(s ) a CT:CT chest wo Addend a: Exam(s ) CT CHEST WO ADDEND UM: The images were review ed. I agree with the findin gs and impres justin below. Dictat ed By: Ellen Leigh [id number] Ellen Leigh 1459 Transc ribed By: Robin Delacruz [id number] Exam(s ) CT CHEST WO EXAM: CT CHEST WO CLINIC AL HISTOR Y: COPD,J 44.9,C URRENT SMOKER ,SCREE AUDRA FOR CA. TECHNI QUE: Multi planar recons tructi ons were perfor med. CONTRA ST MATERI AL: None COMPAR DORIAN: CT CT CHEST LUNG CANCER SCREEN from 2021 CR,XR XR PORTAB LE CHEST AP from 2021 CR XR CHEST 2V PA LATERA L from 2023 FINDIN GS: CHEST: LUNGS: There is an unchan ged calcif ied granul kaleigh in the left lung base train gateman ior basal segmen t. Mild increa sed subple ural markin gs are again noted in the train gateman ior basal segmen t of the right lower lobe, unchan ged from CT scan of 2021. In the inferi or aspect of the latera l segmen t of the right middle lobe there is slight ly increa sed benign -appea ring markin gs which were not previo usly presen t (serie s 2/imag e 124). There are no pleura l effusi ons on either side. MEDIAS TINUM: There is no obviou s hilar nor medias tinal adenop athy. Small calcif ied lymph node in the left hilum again noted, this being the side with the benign left lower lobe granul kaleigh. No calcif ied lymph nodes in the right hilum nor in the subcar inal region or elsewh ere in the medias tinum. Visual ized thyroi d unrema rkable . CARDIA C: Heart size is normal . There is no perica rdial effusi on.Barak iber of the thorac ic aorta is within normal limits . VISUAL IZED UPPER ABDOME N:Righ t adrena l gland unrema rkable . Hypode nse nodule in the left adrena l gland measur ing 3 x 1.8 cm is unchan ged. Probab ly adenom a. OSSEOU S: No signif icant osseou s lesion s.. IMPRES JUSTIN: 1. Stable benign -appea ring findin gs with the except ion of a new small nodula r infilt rate in the most latera l aspect of the right middle lobe, inferi maulik. This is fissur e relate d. 2. No pleura l effusi ons nor signif icant intrat horaci c adenop athy. 3. Lung rads catego ry: 1-caridad gn appear ance. Nodule with low likeli barton of becomi ng active cancer . Recomm end repeat scan in 1 year RADIAT ION DOSE DELIVE RED: Total DLP DATA REPOSI TORY: All CT scans at this facili ty are submit adan to the Nation al Radiol ogy Data Regist ry (NRDR) Dose Index Regist ry (DIR) with the [place] of Radiol ogy (ACR). RADIAT ION OPTIMI ZATION : [facility] use at least one of these dose optimi zation techni ques: automa adan exposu re contro l; mA and/or kV adjust ment per patien t size (inclu josseline target ed exams where dose is matche d to clinic al indica tion); or iterat sharif recons tructi on. 411-0 013: Total DLP = 0.00 mGy-cm Ordere d By: Diana paulson,Kirsten LOMAS CC: ------ ------ ------ ------ ------ ------ ------ ------ ------ ------ ------ ------ ---- Dictat ed By: Gurwinder Reyes M.D. 1320 1320 Transc ribed By: Eric HERNANDEZ,Toña hatfield 1320 This is privil eged, confid ential inform ation intend ed only for the provid er named. Any use or distri bution by any person other than this provid er is strict ly prohib ited. If you receiv e this report in error, please notify us immedi georgely at and return the origin al report to us at the addres s above. Thank- you. [email or web address] [facility] [address], [place], [address] 02/11/2024 08:02:45 04/21/20 24 03/21/2022 XR, shoul tito No observ ation record ed. Not Available 04/21 19:39:33 04/21/20 24 03/21/2022 XR, shoul tito No observ ation record ed. Not Available 04/21 19:39:34 04/21/20 24 06/08/2022 imagi ng/di agnos tic resul t No observ ation record ed. Not Available 04/21 19:39:36 04/21/20 24 07/27/2022 imagi ng/di agnos tic resul t No observ ation record ed. Not Available 04/21 19:39:41 04/21/20 24 07/11/2021 XR, hand No observ ation record ed. Not Available 04/21 19:39:42 04/21/20 24 05/15/2022 imagi ng/di agnos tic resul t No observ ation record ed. Not Available 04/21 19:40:16 04/21/20 24 07/27/2022 imagi ng/di agnos tic resul t No observ ation record ed. Not Available 04/21 19:40:23 Result Notes None recorded. Problems Name Problem SNOMED Code Status Onset Date Resolution Date Notes Provider Name and Address Organization Details Recorded Time Seborrhe ic dermatit is 88458449 Completed 201606/11/2017 05/31/20 17 - Comments only - Beth Salmon PA-C - Will treat with RXd KETOCONA ZOLE 2% CREAM BID. Problem Code: L21.9; Problem Code Type: ICD-10; Not Available [facility] 3 05:30:50 Benign lipomato us tumor 469331289 Completed 202005/09/2021 04/26/20 21 - Comments only - Beth Salmon PA-C - Will arrange for surgical consult @ [facility] for excision al procedur e. Problem Code: D17.9; Problem Code Type: ICD-10; Not Available [facility] 3 05:30:50 Shoulder joint pain 649718686 Active 202101/24/20 22 - Comments only - Monie Basilio [facility]- - - We reviewed treatmen t options, includin g nonstero idal anti-inf lammator ies, physical therapy, and possible steroid injectio ns. He is very interest ed in discussi ng injectio ns in both shoulder s as soon as possible , As this was so effectiv e for him in the past with his right shoulder . -I will refer him to orthoped ics to discuss options. -Kathleen lundberg he will continue to take ibuprofe n as needed. I did reassure him that is okay to take 400 mg p.o. 3 times daily with food if needed. I also encourag ed him to move his arms through full passive range of motion as he is able. 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 Assuming benign findings with same, will consider to advance diagnost ic w/u for suspecte d L5-S1 lumbar radiculi tis. Problem Code: M79.10; Problem Code Type: ICD-10; Not Available [facility] 3 05:30:51 Cough 06975966 Active 2021 Problem Code: R05.8; Problem Code Type: ICD-10; Not Available [facility] 3 05:30:51 Upper respirat ory tract infectio n caused by Influenz a A 12656364114 9104 Active 202107/26/20 22 - Comments only - Monie Basilio [facility] - - Rapid test today POSITIVE for FLU A, negative for COVID. - He is afebrile today, O2 sat = 94%. - He is a generall y healthy 72yo, current smoker but otherwis e no risk factors for severe illness, and he feels his symptoms are starting to improve. - Reviewed home measures for symptom manageme nt - Rx Kassandra serrano sent for night time cough - He will foillow up with his PCP in1 week; call sooner with any question s or concerns . Problem Code: J09.x2; Problem Code Type: ICD-10; Not Available [facility] 3 05:30:51 Acute exacerba tion of chronic obstruct sharif pulmonar y disease 547460606 Active 202108/02/20 22 - Comments only - Beth Salmon PA-C - Patient to continue on ZITHROMA X as RXd by [facility] provider . OK to continue to suppleme nt with OTC MUCINEX +/- ALBUTERO L MDI via spacer. F/U PRN if sxs fail to improve as expected over the course of the week. Problem Code: J44.1; Problem Code Type: ICD-10; Not Available [facility] 3 05:30:51 History of SARS-CoV -2 84886079470 9770997 Active Problem Code: Z86.16; Problem Code Type: ICD-10; Not Available [facility] 3 05:30:51 Wheezing 13011056 Active 2022 Problem Code: R06.2; Problem Code Type: ICD-10; Not Available [facility] 3 05:30:51 Divertic kye of intestin e 21644392 Active 2006 Problem Code: K57.90; Problem Code Type: ICD-10; Not Available [facility] 3 05:30:51 Tobacco dependen ce caused by cigarett es 13671794459 764569 Active 195904/28/20 22 - Comments only - Beth Salmon PA-C - Will arrange for low dose CT at [facility] at next availabl e. Problem Code: F17.210; Problem Code Type: ICD-10; Not Available [facility] 3 05:30:51 Hyperlip idemia 49878480 Active 200504/28/20 22 - Comments only - Beth Salmon PA-C - Repeat lipid profile collecte d today. Will consider to RS statin therapy (conside r CRESTOR for improved tolerabi lity; ASE on LIPITOR) pending results of same. Problem Code: E78.5; Problem Code Type: ICD-10; Not Available [facility] 3 05:30:52 Erectile dysfunct ion 856960066 Active 200508/01/20 21 - Comments only - Beth Salmon PA-C - Sxs stable at present. To continue on RFd SILDENAF IL 40mg PRN. Problem Code: F52.21; Problem Code Type: ICD-10; Not Available [facility] 3 05:30:52 Adult health examinat ion Active 201504/28/20 22 - Comments only - Beth Salmon PA-C - Flu and COVID booster #2 administ ered today. Problem Code: Z00.00; Problem Code Type: ICD-10; Not Available [facility] 3 05:30:52 Pain of left hand 71621609384 9103 Completed 201606/11/2017 05/31/20 17 - Comments only - Beth Salmon PA-C - Will arrange for x-ray imaging to r/o for traumati c bony disrupti on. Further treatmen t interven tion, includin g consider ation towards PT vs. ortho refer, pending results of same. Problem Code: M79.642; Problem Code Type: ICD-10; Not Available [facility] 3 05:30:52 Lesion of ulnar nerve 742729230 Completed 201403/05/2017 Problem Code: G56.20; Problem Code Type: ICD-10; Not Available [facility] 3 05:30:52 Patient status finding 763608485 Completed 201503/05/2017 Problem Code: Z78.9; Problem Code Type: ICD-10; Not Available [facility] 3 05:30:52 Acute bronchit is 80675304 Completed 201603/05/2017 Problem Code: J20.9; Problem Code Type: ICD-10; Not Available [facility] 3 05:30:52 Smoker 73546582 Completed Not Available [facility] 3 05:30:52 Divertic ular disease 286137567 Completed 200605/02/2023 Not Available [facility] 3 05:30:53 Impotenc e Completed 200505/02/2023 Not Available [facility] 3 05:30:53 Dyslipid emia 369011748 Completed 200505/02/2023 08/01/20 21 - Comments only - Beth Salmon PA-C - Repeat lipid profile and CMP collecte d today as montiori ng on LIPITOR 10mg QD. Not Available [facility] 3 05:30:53 Chronic seborrhe ic dermatit is 409681688 Active [address], [place], [address] , [facility] 4 08:35:16 Problem Notes None recorded. Procedures Surgical History Date Name Laterality Status Provider Name and Address Organization Details Recorded Time 4 Nebulizer tx completed [address], [place], [address], [facility] 03/13/2024 09:56:10 4 Nebulizer tx completed [address], [place], [address], [facility] 10/29/2023 11:41:27 Imaging Results Imaging Date Name Status [facility]Modified by [facility] Details LastModified Time 10/29/2023 XR, chest, 2 view completed [facility], [place], [address], 10/29/2023 12:46:07 10/29/2023 XR, chest, 2 view completed [id number] [facility], [place], [address], 10/29/2023 12:39:20 05/09/2021 colonoscopy outcomes reporting* completed [facility] Information not available 10/29/2023 18:28:58 11/16/2023 CT, chest, w/o contrast completed [email or web address] [address] [place], [address] 02/04/2024 13:25:55 12/16/2023 vrad report completed [address] [place], [address] 12/17/2023 07:56:24 12/16/2023 x-ray imaging report completed [address] [place], [address] 12/17/2023 07:56:25 11/16/2023 CT imaging report completed [address] [place], [address] 02/11/2024 08:02:45 03/21/2022 XR, shoulder completed Information not available 04/21/2024 19:39:33 03/21/2022 XR, shoulder completed Information not available 04/21/2024 19:39:34 06/08/2022 imaging/diagnos tic result completed Information not available 04/21/2024 19:39:36 07/27/2022 imaging/diagnos tic result completed Information not available 04/21/2024 19:39:41 07/11/2021 XR, hand completed Information no t available 04/21/2024 19:39:42 05/15/2022 imaging/diagnos tic result completed Information not available 04/21/2024 19:40:16 07/27/2022 imaging/diagnos tic result completed Information not available 04/21/2024 19:40:23 Procedure Notes None recorded. Medical Equipment None Reported. Allergies No known drug allergies Medications Name Sig Start Date Stop Date Status Note LastModified by Organization Details LastModified Time prednisone 10 mg tablet Take 1 tablet by oral route. 08/12 completed Not Available Not Available Not Available ipratropium 0.5 mg-albutero l 3 mg (2.5 mg base)/3 mL nebulizatio n soln Inhale 3 mL by nebulizat ion route. 2023 active Not Available Not Available Not Avai lable albuterol sulfate 2.5 mg/3 mL (0.083 %) solution for nebulizatio n Inhale 3 mL by nebulizat ion route. 02/20 completed Not Available Not Available Not Available Carafate 1 gram tablet Take 1 tablet 4 times a day by oral route for 14 days. 2024 active Not Available Not Available Not Avai lable azithromyci n 250 mg tablet Take 2 by mouth today, then take 1 by mouth daily x 4 days 02/20 completed Not Available Not Available Not Available prednisone 20 mg tablet Take 2 tablets by oral route with meal(s). 08/12 completed Not Available Not Available Not Available Prilosec 20 mg capsule,del ayed release 1 CAP QD 07/23 completed Not Available Not Available Not Available Aleve 220 mg tablet 1 TAB .BID prn pain 2013 active Not Available Not Available Not Avai lable Nicoderm CQ 7 mg/24 hr daily transdermal patch Apply 1 patch externall y daily. Rotate skin sites 03/05 completed Not Available Not Available Not Available Nicoderm CQ 14 mg/24 hr daily transdermal patch Apply 1 patch externall y daily 03/05 completed Not Available Not Available Not Available benzonatate 100 mg capsule TAKE 1 CAPSULE BY MOUTH THREE TIMES DAILY NEEDED FOR COUGH 02/20 completed Not Available Not Available Not Available pantoprazol e 40 mg tablet,carlos yed release Take 1 tablet every day by oral route. 2024 active Not Available Not Available Not Avai lable prednisone 50 mg tablet TAKE ONE TABLET BY MOUTH EVERY MORNING 08/12 completed Not Available Not Available Not Available aspirin 81 mg tablet Take 1 tablet by mouth once a day 03/09 completed Not Available Not Available Not Available cefuroxime axetil 500 mg tablet TAKE 1 TABLET BY MOUTH EVERY 12 HOURS FOR 5 DAYS 10/28 completed Not Available Not Available Not Available albuterol sulfate HFA 90 mcg/actuati on aerosol inhaler Inhale 2 puffs every 4 hours by inhalatio n route as needed for 30 days. 2023 active Not Available Not Available Not Avai lable ketoconazol e 2 % topical cream APPLY TO AFFECTED AREAS (FACE) TWICE DAILY active Not Available Not Available No t Available Lipitor 10 mg tablet Take 1 tablet by mouth every night 03/09 completed Not Available Not Available Not Available Adult Aspirin EC Low Strength 81 mg tablet,carlos yed release 1 TAB QD 07/23 completed Not Available Not Available Not Available doxycycline hyclate 100 mg tablet TAKE 1 TABLET BY MOUTH TWICE DAILY FOR 7 DAYS 02/20 completed Not Available Not Available Not Available amoxicillin 875 mg-potassiu m clavulanate 125 mg tablet TAKE ONE TABLET BY MOUTH EVERY 12 HOURS FOR 5 DAYS 08/12 completed Not Available Not Available Not Available Zithromax 500 mg tablet 2 tablet by mouth single dose then 1 tablet daily for 4 more days 10/07 completed Not Available Not Available Not Available Crestor 5 mg tablet 1 tablet by mouth once a day 06/13 completed Not Available Not Available Not Available sildenafil (pulmonary hypertensio n) 20 mg tablet Take 2 tablet by mouth as needed 03/09 completed Not Available Not Available Not Available vitamin E 1-2 x / week 07/23 completed Not Available Not Available Not Available Fish Oil 1 x / week 09/08 completed Not Available Not Available Not Available budesonide- formoterol HFA 160 mcg-4.5 mcg/actuati on aerosol inhaler INHALE 2 PUFFS BY MOUTH TWICE DAILY active Not Available Not Available No t Available Combigan 0.2 %-0.5 % eye drops INSTILL 1 DROP INTO BOTH EYES EVERY MORNING DIRECTED 08/12 completed Not Available Not Available Not Available Aleve 220 mg capsule 1 tablet by mouth twice a day as needed 04/25 completed Not Available Not Available Not Available Chantix Starting Month Box 0.5 mg (11)-1 mg (42) tablets in dose pack O.5mg qd x3, then 0.5mg bid x4, then 1mg bid 04/25 completed Not Available Not Available Not Available Combivent Respimat 20 mcg-100 mcg/actuati on solution for inhalation Inhale 2 puff by mouth four times daily as needed 02/20 completed Not Available Not Available Not Available fluticasone furoate 100 mcg-vilante rol 25 mcg/dose inhalation powder INHALE 1 PUFF BY MOUTH EVERY DAY active Not Available Not Available No t Available sildenafil (antihypert ensive) 20 mg tablet 1-2 TABS prn prior to sex 2014 active Not Available Not Available Not Avai lable Lagevrio 200 mg capsule (EUA) 4 tablets bid for 5d 06/13 completed Not Available Not Available Not Available Vitals Date Recorded Body height Body temperature Oxygen saturation Oxygen saturation in Arterial blood by Pulse oximetry Heart rate Systolic blood pressure Diastolic blood pressure Provider Name and Address Organization Details Last Updated DateTime 4 171.45 cm 99 [degF] 94 % 94 % 84 /min 112 mm[Hg] 66 mm[Hg] ARIELA SHARMA LPN [facility] 4 14:15:15 Date Recorded Body height Body mass index (BMI) Body weight Oxygen saturation Oxygen saturation in Arterial blood by Pulse oximetry Heart rate Systolic blood pressure Diastolic blood pressure Provider Name and Address Organization Details Last Updated DateTime 4 171.45 cm 25.3 kg/m2 34352.1 5 g 95 % 95 % 74 /min 114 mm[Hg] 62 mm[Hg] Josue Duckworth MA [facility] 4 08:06:03 Date Recorded Body height Body mass index (BMI) Body weight Respiratory rate Oxygen saturation Oxygen saturation in Arterial blood by Pulse oximetry Heart rate Body temperature Systolic blood pressure Diastolic blood pressure Provider Name and Address Organization Details Last Updated DateTime 4 171.45 cm 25.3 kg/m2 09272.1 5 g 17 /min 95 % 95 % 66 /min 97.4 [degF] 144 mm[Hg] 87 mm[Hg] Jo Albrecht RN [facility] 4 09:18:42 Date Recorded Body height Body mass index (BMI) Body weight Body temperature Oxygen saturation Oxygen saturation in Arterial blood by Pulse oximetry Heart rate Respiratory rate Systolic blood pressure Diastolic blood pressure Provider Name and Address Organization Details Last Updated DateTime 171.45 cm 26.7 kg/m2 69817.4 8 g 97.3 [degF] 95 % 95 % 68 /min 16 /min 110 mm[Hg] 66 mm[Hg] Bernarda Leach [facility] 09:48:17 Social History Question Answer Notes LastModified by Organizat ion Details LastModified Time Tobacco Smoking Status Former Smoker LUIS A Snyder, [facility] 02/21/2024 08:04:10 When Did You Quit Smoking? 1-5yearssinc elastcigaret te Quit Smoking August 2023 [email or web address] Information not available 02/21/2024 Date Of Most Recent HSA 11/07/2023 [email or web address] Information not available 11/07/2023 Would You Say That, In General, Your Health Is Fair [email or web address] Information not available 11/07/2023 How Often Does Anyone, Including Family, Physically Hurt You? Never [email or web address] Information not available 11/07/2023 How Often Does Anyone, Including Family, Insult Or Talk Down To You? Sometimes [email or web address] Information no t available 11/07/2023 How Often Does Anyone, Including Family, Threaten You With Harm? Never [email or web address] Information not available 11/07/2023 How Often Does Anyone, Including Family, Scream Or Curse At You? Never Information not available 11/07/2023 Within The Past 12 Months, You Worried That Your Food Would Run Out Before You Got Money To Buy More. Never True [email or web address] Information n ot available 11/07/2023 Within The Past 12 Months, The Food You Bought Just Didn't Last And You Didn't Have Money To Get More. Never True [email or web address] Information n ot available 11/07/2023 How Hard Is It For You To Pay For The Very Basics Like Food, Housing, Medical Care, And Heating? Would You Say It Is: Not Hard At All [email or web address] Information not available 11/07/2023 In The Past 12 Months, Has Lack Of Reliable Transportation Kept You From Medical Appointments, Meetings, Work Or From Getting Things Needed For Daily Living? No [email or web address] Information not available 11/07/2023 What Is Your Housing Situation Today? I Have Housing. [email or web address] Information not available 11/07/2023 How Often In The Past Year Have You Used Marijuana (including Smoking, Vaping, Dabbing, Or Edibles)? Never [email or web address] Information not available 11/07/2023 How Often In The Past Year Have You Used Prescription Medications That Were Not Prescribed To You? Never [email or web address] Information n ot available 11/07/2023 How Often In The Past Year Have You Taken Your Own Prescription Medication More Than The Way It Was Prescribed Or For Different Reasons Than Its Intended Purpose? Never [email or web address] Information no t available 11/07/2023 How Often In The Past Year Have You Used Other Drugs (for Example, Heroin, Cocaine, Meth, Salvia, Inhalants)? Never [email or web address] Information not available 11/07/2023 Have You Ever Used IV Drugs? No [email or web address] Information not available 11/07/2023 What Matters Most To You? Health And Being Happy [email or web address] Information not available 11/07/2023 During The Past Four Weeks Has Your Physical And Emotional Health Limited Your Social Activities With Family And Friends, Neighbors, Or Groups? Not At All Information not available 11/07/2023 During The Past Four Weeks, Was Someone Available To Help You If You Needed And Wanted Help? (For Example, If You [place] Very Nervous, Lonely, Or Blue; Got Sick And Had To Stay In Bed; Needed Someone To Talk To; Needed Help With Daily Chores; Or Needed Help Just Taking Care Of Yourself.) No- Not At All [email or web address] Information not available 11/07/2023 During The Past Four Weeks, What Was The Hardest Physical Activity You Could Do For At Least 2 Minutes? Moderate [email or web address] Information not available 11/07/2023 Can You Get To Places Out Of Walking Distance Without Help? (For Example, Can You Travel Alone On Buses Or Taxis, Or Drive Your Own Car?) Yes [email or web address] Information not available 11/07/2023 Can You Go Shopping For Groceries Or Clothes Without Someone? s Help? Yes Information not available 11/07/2023 Can You Prepare Your Own Meals? Yes [email or web address] Information not available 11/07/2023 Can You Do Your Housework Without Help? Yes [email or web address] Information not available 11/07/2023 Because Of Any Health Problems, Do You Need The Help Of Another Person With Your Personal Care Needs Such As Eating, Bathing, Dressing, Or Getting Around The House? No [email or web address] Information not available 11/07/2023 Can You Handle Your Own Money Without Help? Yes [email or web address] Information not available 11/07/2023 Are You Having Difficulties Driving Your Car? No [email or web address] Information no t available 11/07/2023 Do You Always Fasten Your Seat Belt When You Are In A Car? No [email or web address] Information not available 11/07/2023 How Often During The Past Four Weeks Have You Been Bothered By Any Of The Following Problems? Falling Or Dizzy When Standing Up? Seldom Information not available 11/07/2023 Sexual Problems? Sometimes [email or web address] Informat ion not available 11/07/2023 Trouble Eating Well? Never [email or web address] Information not available 11/07/2023 Teeth Or Denture Problems? Sometimes [email or web address] Information not available 11/07/2023 Problems Using The Telephone? Never Information not available 11/07/2023 Tiredness Or Fatigue? Seldom [email or web address] Information not available 11/07/2023 Have You Had 2 Or More Falls Or Sustained An Injury With A Fall In The Last Year? No [email or web address] Information no t available 11/07/2023 Do You Have Difficulty With Walking Or Balance? No [email or web address] Information not available 11/07/2023 Do You Currently Use A Hearing Device? No [email or web address] Information not available 11/07/2023 Do You Currently Have Any Trouble With Your Vision? No [email or web address] Information no t available 11/07/2023 Do You Exercise For About 20 Minutes Three Or More Days A Week? Yes- Most Of The Time Information not available 11/07/2023 Are There Any Safety Concerns In Your Home (see Attached CDC Pamphlet)? No [email or web address] Information not available 11/07/2023 How Often Do You Have Trouble Taking Medicines The Way You Have Been Told To Take Them? I Do Not Have To Take Medicine [email or web address] Information not available 11/07/2023 How Confident Are You That You Can Control And Manage Most Of Your Health Problems? Somewhat Confident [email or web address] Information not available 11/07/2023 Do You Currently Have Any Difficulty With Your Hearing? No [email or web address] Information not available 11/07/2023 Date Of Most Recent SBINS 11/07/2023 [email or web address] Information not available 11/07/2023 What Was The Date Of Your Most Recent Tobacco Screening? 03/13/2024 Information not available 03/13/2024 Has Tobacco Cessation Counseling Been Provided? Yes Information not available 03/13/2024 On What Date Was Tobacco Cessation Counseling Provided? 03/13/2024 Information not available 03/13/2024 Do You Or Have You Ever Used Any Other Forms Of Tobacco Or Nicotine? No [email or web address] Information not available 11/07/2023 Sex: Male Functional Status None recorded. Mental Status None recorded. Family History Relationship Description Onset Age of this Age Resolved Age Notes LastModified by Organization Details LastModified Time Brother Family history of psychotic illness SUICID E IN 40'S [email or web address] Not available 06/15/2023 03:52:25 Brother Family history of diabetes mellitus type [facility]. Not available 2022 03:52:26 Father Family history of malignant neoplasm prosta te [place] [facility].70 Not available 06/15/2023 03:52:26 Notes:*Problem: MOTHER - Dem entia - at 103 Father from prostate and colon cancer, at 75. SISTERS x 2 - x 1 due to CF DAUGHTERS x 3 - L&W without ongoing medical issues SON x 1 - L&W without ongoing medical issues 1 of 13 kids - 6 from CF, except for one who from a ruptured appendix Medical History No medical history recorded. Immunizations Vaccine Type Date Status Note Provider Nam e and Address Organization Details Recorded Time Tdap 4 completed Not Available [facility] 06/15/2023 06:28:04 zoster live 3 completed Not Available [facility] 06/15/2023 06:28:04 Pneumococcal conjugate PCV 13 7 completed Not Available [facility] 06/15/2023 06:28:04 Influenza, high-dose, quadrivalent, PF 1 completed Not Available [facility] 06/15/2023 06:28:05 Influenza, high-dose, quadrivalent, PF 2 completed Not Available [facility] 06/15/2023 06:28:05 Influenza, high-dose, quadrivalent, PF 0 completed Not Available [facility] 06/15/2023 06:28:05 COVID-19, mRNA, LNP-S, PF, 100 mcg/0.5mL dose or 50 mcg/0.25mL dose 1 completed Not Available [facility] 06/15/2023 06:28:05 COVID-19, mRNA, LNP-S, PF, 100 mcg/0.5mL dose or 50 mcg/0.25mL dose 1 completed Not Available [facility] 06/15/2023 06:28:05 COVID-19, mRNA, LNP-S, PF, 100 mcg/0.5mL dose or 50 mcg/0.25mL dose 1 completed Not Available [facility] 06/15/2023 06:28:05 COVID-19, mRNA, LNP-S, bivalent, PF, 30 mcg/0.3 mL dose 2 completed Not Available [facility] 06/15/2023 06:28:05 pneumococcal polysaccharide PPV23 7 completed Not Available [facility] 06/15/2023 06:28:05 influenza, unspecified formulation 0 completed Not Available [facility] 06/15/2023 06:28:06 Influenza, high-dose, quadrivalent, PF 3 completed Not Available [facility] 08/17/2023 05:31:29 influenza, unspecified formulation 4 completed Bernarda ramirez [facility] 08/12/2024 09:38:19 SARS-COV-2 (COVID-19) vaccine, UNSPECIFIED 4 completed Bernarda ramirez [facility] 08/12/2024 09:38:34 Past Encounters Encounter ID Performer Location Encounter Start Date Encounter Closed Date Diagnosis/Indication Diagnosis SNOMED-CT Code Diagnosis ICD10 Code Diagnosis Note [id number] PUNEET WILL PA-C [address] [place] [address] 08/17/2023 09:33:05 08/17/2023 11:20:05 Acute exacerbation of chronic obstructive pulmonary disease 151173474 J44.1 Patient presents with ill symptoms throughout 3 to 4 days. He has been around his ex- who he is currently living with who developed ill symptoms first. Of note she was seen here and had a negative rapid COVID and flu test and a negative COVID PCR. My patient's rapid COVID and flu test are also negative. I do not feel that we will require PCR at this time given no negative COVID exposure. His lung exam is reassuring and that I do not hear signs of pneumonia but he does have a very faint wheeze in the right lower lung field. He has been using his nebulized albuterol solution at nighttime and reports having adequate supply of this. When he is not sick he does not typically need this. He has required prednisone with COPD exacerbati ons in the past. He tolerates his medication well. Given the increasing sputum production , shortness of breath and increased need for albuterol solution I think we should not only start the prednisone 50 mg daily x 5 days but also I will place him on cefuroxime 5 mg twice a day for 5 days. I do expect symptoms should begin to improve. If not improving or worsening he is encouraged to seek reevaluati on as needed. Patient voiced understand ing. [id number] EDUARD MARTINEZ [address] [place] [address] 10/29/2023 09:36:29 10/29/2023 11:26:21 Dyspnea on exertion [id number] R06.09 73 year old male, with known history of COPD with viral URI illness several weeks ago, with progressiv e shortness of breath on exertion, fatigue, and cough. Today, O2 sat 94% on room air, slightly lower than patient's baseline. Negative rapid COVID/flu testing. There are audible wheezes on forced expiration and some coarse crackles to bases. Mild improvemen t in air movement after receipt of Duoneb treatment via nebulizer, still with some persisting wheezes Will obtain CXR today to [facility]enn[facility] for PN.CXR returned, showing no acute findings, no infiltrate /consolida tion. Reviewed with patient by phone. Will treat COPD exacerbati on as below. Acute exac erbation of chronic obstructive pulmonary disease [id number] J44.1 Patient with up to 3 weeks of cough, with increase shortness of breath, sputum production and purulence. Today, due to wheezing, will treat with prednisone burst. This is second COPD exacerbati on in the last year, will treat with Augmentin due to age and risk factors. [id number] BETH SALMON PA-C [address] [address] 11/07/2023 14:34:26 11/07/2023 15:49:11 Adult health examination [id number] Z00.00 Screening for malignant neoplasm of colon 675313499 Z12.11 Will order repeat COLOGUARD as alternativ e to colonoscop y for colorectal CA screening. Chronic ob structive pulmonary disease 42498380 J44.9 Will arrenge for PFTs and LDCT at [facility] at next available. While awaiting results of same, patient may continue to use ALBUTEROL vs. DUONEB PRN via nebulizer. Will give further considerat ion towards initiation of maintenanc e therapy upon testing review. Hyperlipidemia [id number] E78.5 Repeat lipid profile collected today as monitoring . [id number] EDUARD FERGUSON [address] [address] 11/14/2023 13:54:03 11/14/2023 14:53:27 Cough 58425884 R05.9 ? Developing pneumonia Versus COPD exacerbati on, will treat with azithromyc in? Z-Erik, prednisone 40 mg QD x 5 days, have him increase his nebulizer use to T I D over the next week, add on Tessalon Perles for cough, flu and COVID testing today negative. Encouraged smoking cessation. If he does not begin to improve by the end of the week or certainly if he worsens he knows to contact the clinic. [id number] Josue Duckworth MA [facility] [address] [place] [address] 12/13/2023 08:07:35 12/13/2023 08:32:48 Prostate specific antigen above reference range 927434839 R97.20 Mixed hyperlipidemia 267 873003 E78.2 [id number] DHEERAJ YI MD [facility] [address] [place] [address] 02/21/2024 07:54:40 02/21/2024 08:47:15 Acute exacerbation of chronic obstructive pulmonary disease [id number] J44.1 Clinically stable currently - he is going to continue with the Breo ellipta/fl uticasone using it as a prn when feeling well but will increase to bid dosing with onset of any URI symptoms/a llergic symptoms/d iminishmen t in lung fxn. He still has his prior symbicort which he has occasional ly used as a rescue inhaler (last used 2 weeks ago) which I told him is fine. He is not currently interested in having an albuterol HFA available. He is remaining abstinent from smoking which is huge. Wheezing 26145669 R06.2 diminished significan tly. No current wheezing. He feels he is tolerating /getting used to the Breo inhaler. Chronic se borrheic dermatitis 166217274 L21.9 will try ketoconazo le in addition to the selsun blue he is already using. Adult heal th examination 110104459 Z00.00 UTD with LDCT, PSA. He is not interested in a repeat colonoscop y despite FH of colon CA but has been doing cologuards (negative) [id number] PUNEET WILL PA-C [address] [place] [address] 03/13/2024 09:05:13 03/13/2024 09:58:09 Acute exacerbation of chronic obstructive pulmonary disease 205102122 J44.1 Patient has had viral URI symptoms for about 2 to 3 weeks now. Cough is now worsening with increasing sputum production , shortness of breath and increased need for his inhalers. On exam his lungs are pretty clear throughout without sounds to suggest pneumonia. No active wheezing. He is offered a DuoNeb treatment while here and he would like to proceed with such. Afterwards lung exam continues to show no signs of pneumonia or wheeze. Patient now states he feels like he can take a big deep breath more easily. I have recommende d that he continue to use his maintenanc e inhaler daily at home as prescribed and he does report he needs refill of his albuterol which I have refilled today. He is given his first dose of 50 mg of prednisone while here and prescripti ons to be taken for total of 5 days sent to pharmacy as well as Augmentin 875 p.o. twice daily x 5 days with first dose administer ed in clinic. I do expect symptoms should begin to improve. If not improving, worsening or he develops other concerning symptoms he is encouraged to seek reevaluati on as needed. [id number] Bernarda Tarango [facility] [address] [place] [address] 08/12/2024 09:29:31 08/12/2024 10:43:00 Abdominal pain [id number] R10.9 ongoing and intermitte nt for approx 1 moassoc w dark/black stools, bloating, gas, gurgling , significan t acid refluxcolo mariposa negative november 19, 2023+ pressure discomfort elicited w deep palpation of L periumbili barak and epigastric areatx empiricall y for gastroduod enitis w likely small bleed as cause of dark stoolsstar t pantoprazo le 40mg QAM before bfast, carafate 1gr 3-4x daily x 2 weekscheck CBC r/o anemia, BMP r/o prerenal azodue to FHx and pt's symptoms, needs colonoscop y - referral to GI for evalf/u w me in 3 weeks to re-assess Dark stools 12085129 R19 .5 cologard negative on 11/19/23no anemia in most recent CBC in december 2023+ FHx of colon CA in father - passed @ 77yopossib le gastroduod enitis w bleed - no acute/surg ical abdomen on exam today in officetx pantoprazo le 40mg QAM, carafate 3-4x dailycheck CBC, bmp Family his tory of cancer of colon [id number] Z80.0 in father - passed 77 Gastroduodenitis [id number] 05 K29.91 see abovepanto prazole 40mg QAMcarafat e 1g 3-4x dailyCBC, BMPantiref lux diet, avoid nsaids, tobacco, etohreferr al to GI due to strong FHx of colon CA in fatherf/u 3 weeks to re-assess Malodorous urine [id number] R82.998 urine dip checked in officetrac e protein, otherwise negativein crease clear fluid intake Health Concerns Section Related Observation LastModified by Organization Detai ls LastModified Time None Recorded Concern Status LastModified by Organization Details LastModified Time None Recorded Advance Directives Directive None Recorded Payers Encounter Date Sequence Insurance Name Policy Number Policy Irvin Covered Member ID Irvin Member ID Guarantor Name 11/14/2023 1 [employer] - [place]) [id number] Tee P Ladi [id number] Tee P Ladi 12/13/2023 1 [place]) [id number] Tee P Ladi [id number] Tee P Ladi 02/21/2024 1 [place] - [place]) [id number] Tee P Ladi [id number] Tee P Ladi 03/13/2024 2 [facility] (MEDICAID) Tee Ladi [id number] Tee P Ladi 03/13/2024 1 [place] - PPO) [id number] Tee P Ladi [id number] Tee P Ladi 08/12/2024 2 [facility] (MEDICAID) Tee Ladi [id number] Tee P Ladi 08/12/2024 1 [facility] (MEDICARE REPLACEMENT/A DVANTAGE - PPO) [id number] Tee Vanessa Ladi [id number] Tee Mendez Ladi Notes Date Note Type Note Provider Name and Address Organization Details Recorded Time 11/14/2023 text/html 73-year-old man here for complaints of worsening productive cough bringing up green and dark brown sputum over the past several days. He was seen at urgent care on 10/28 concern over pneumonia, negative flu and COVID, chest x-ray was unremarkable, advised to use nebulizer, treated with Augmentin and prednisone for acute exacerbation of COPD. He did improve, but the past several days he experienced a worsening of symptoms and now he has a productive cough, fever chills. He has not been smoking his cigarettes lately. He feels wheezy at nighttime coughing is worse during the night. 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 Initially started as hoarse voice and has now settled into his lungs. He has a maintenance inhaler which she is supposed to use every day but only uses it about twice per week when not sick but tries to use it more often when sick. He also has a rescue inhaler he does not typically use when not sick but has been using it at least once daily for this last week. He has felt subjectively hot and cold but has not had documented fevers. No nausea or vomiting. Normal bowel bladder. Eating and drinking per usual. Does have some discomfort in the chest with coughing and increasing shortness of breath and wheeze. PUNEET WILL PA-C [address], [place], [phone], [facility]. 03/13/2024 12:20:35 08/12/2024 text/html pt. presents to office c/o abdominal pain, bloating, gas, acid reflux, and black stools for approx 1 mo.no changes in bowel habits - no constipation or diarrhea. most BMs have been very dark/black. no wilfrido blood in stool or BRBPR. last BM today - states was brown. no weight loss or night sweats. has FHx of colon CA in father (passed at 75yo). pt. reports GI symptoms worse w acidic foods, better w dairy. pt. is light smoker (approx 3 cigarettes/week), occ. etoh - not every day.pt. had tried kayopectate and pepto bismol after symptoms started w/o relief of symptoms.denies prior hx of stomach/intestinal ulceralso c/o foul smelling urine. Bernarda ramirez [place] - [facility]. 08/12/2024 14:20:09
--- OUTSIDE RECORDS SUMMARY | 2024-08-12 17:09 | XMS_ITS | Encounter Summary ---
Author Organization [facility] Address [address] [place] [address] Care Team Providers Care Tromper Name Role Phone Beth Roman PA-C Primary Care Provider + Encounter Details Date Type Department Care Team (Late st Contact Info) Description 06/13/2022 Lab Requisition [facility] Pathology & [place] [address] Outr Resulting Lab, Provider Social History Tobacco [...] Procedure Name Priority Date/Time Associated Diagnosis Comments LYME AB Routine 06/13/2022 9:00 EST documented in this encounter Results * LYME AB (06/13/2022 9:00 EST) Lyme Ab Negative Negative 06/15/2022 9:29 EST [facility] Blood VENOUS BLOOD / Unknown 06/13/2022 9:00 EST 06/14/2022 16:31 EST us Provider Outr Resulting Lab IMMUNOLOGY AND SEROL OGY ORDERABLES Final Result [facility] [address] [place] [address] documented in this encounter Visit Diagnoses Not on filedocumented in this encounter Care Teams Tromper Relationship Specialty Start Date End Date Beth Roman PA-C [address] [place] [phone] PCP - General 05/06/21 documented as of this encounter
--- OUTSIDE RECORDS SUMMARY | 2024-08-12 17:09 | XMS_ITS | Encounter Summary ---
Author Organization [facility] Address [address] [place] [address] Care Team Providers Care Housing Management Officer Name Role Phone Beth Roman PA-C Primary Care Provider + Encounter Details Date Type Department Care Team (Late st Contact Info) Description 04/26/2021 Lab Requisition [facility] Pathology & Laboratory Medicine - [facility] [address], [place] [id number] Outr Resulting Lab, Provider Social History Tobacco [...] Associated Diagnosis Comments PSA TOTAL, DIAGNOSTIC Routine 04/25/2021 11:00 EDT documented in this encounter Results * PSA TOTAL, DIAGNOSTIC (04/25/2021 11:00 EDT) PSA 3.2 0.0 - 4.5 ng/mL 04/26/2021 18:06 EDT [facility] Blood VENOUS BLOOD / Unknown 04/25/2021 11:00 EDT 04/26/2021 16:31 EDT Narrative [facility] - 04/26/2021 18:06 EDT NOTE: Serum PSA concentration should not be interpreted as absolute evidence for the presence or absence of malignant disease. Assayed on Siemens [employer] XPT using chemiluminescent technology.??Values obtained by using different assay methods cannot be used interchangeably. us Provider Outr Resulting Lab CHEMISTRY & BLOOD GA S ORDERABLES Final Result [facility] [address] [place] [address] documented in this encounter Visit Diagnoses Not on filedocumented in this encounter Care Teams Housing Management Officer Relationship Specialty Start Date End Date Beth Roman PA-C [address] [place] [phone] PCP - General 05/06/21 documented as of this encounter
--- OUTSIDE RECORDS SUMMARY | 2024-08-12 17:10 | XMS_ITS | Continuity of Care Document ---
Author Organization [facility], [facility] Address [address] [place] [address] Care Team Providers Care Visualizer Name Role Phone [facility] OFFICE Optometris t Assessment No assessment recorded. Plan of Treatment Reminders Order Date Submit Date Provider Last Modified By Organization Details Last Modified Time Details Appointments Acute 20 2024 09:30A Bisi Christensen, DO Not available Not available Not available Follow Up 2024 11:00A Bisi Christensen, DO Not available Not available Not available Medicare Annual Wellness 40 2024 05:20P Bisi HENDRIX LUIS ANTONIO Not available Not available Not available Lab CBC w/ auto diff 2024 025 [facility] (Registration ), [address] [place] [address] [place], [address], 08/12/2024 17:01:31 BMP, serum or plasma 2024 025 [facility] (Registration ), [address] [place] [address] [place], [address], 08/12/2024 11:05:25 urinalysi s, dipstick 2024 025 [email or web address] [facility], [address] [place], [address], 08/12/2024 15:38:15 Referral gastroent erologist referral - abdominal pain, black stools, FHx of colon CA in father - passed at 77. tx'd pt for duodeniti s w PPI and carafate - please eval for endo/colo n 2024 025 [facility], [address], [place], [address], 08/12/2024 12:50:40 Procedures None recorded. Surgeries None recorded. Imaging None recorded. Medication Orders pantopraz ole 40 mg tablet,de layed release [address] [facility][id number], [address] [place] [address], [id number], 08/12/2024 10:17:24 Carafate 1 gram tablet [address] [facility] #[id number], [address] [place] [address], [id number], 08/12/2024 10:17:23 Patient TargetsNo targets recorded. Patient InstructionsNo instructions recorded. Reason for Referral Block And Case Maker Referral for Abdominal pain abdominal pain, black stools, FHx of colon CA in father - passed at 77. tx'd pt for duodenitis w PPI and carafate - please eval for endo/colon Referring Physician: Gordon Christensen, Family Medicine, Encounter Date: 08/12/2024 Results Created Date Observation Date Name Description Value Unit Range Abnormal Flag Note LastModifiedBy Organization Detail LastModifiedTime 08/12/1908/12/2024 urina lysis , dipst ick Leukocytes Negati ve Not Available [address], [address], 08/12/2024 14:16:49 08/12/19 25 08/12/2024 urina lysis , dipst ick Nitrite negati ve Not Available [facility] [address] [place], [address], 08/12/2024 14:16:49 08/12/19 25 08/12/2024 urina lysis , dipst ick Urobilinogen .2 Not Available [address], [address], 08/12/2024 14:16:49 08/12/19 25 08/12/2024 urina lysis , dipst ick Protein Trace Not Available [address], [address], 08/12/2024 14:16:49 08/12/19 25 08/12/2024 urina lysis , dipst ick pH 5.0 Not Available [address], [address], 08/12/2024 14:16:49 08/12/19 25 08/12/2024 urina lysis , dipst ick Blood Negati ve Not Available [address], [address], 08/12/2024 14:16:49 08/12/19 25 08/12/2024 urina lysis , dipst ick Specific Mcfarlan 1.010 Not Available [address], [address], 08/12/2024 14:16:49 08/12/19 25 08/12/2024 urina lysis , dipst ick Ketone Negati ve Not Available [address], [address], 08/12/2024 14:16:49 08/12/19 25 08/12/2024 urina lysis , dipst ick Bilirubin Negati ve Not Available [address], [address], 08/12/2024 14:16:49 08/12/19 25 08/12/2024 urina lysis , dipst ick Glucose Negati ve Not Available [address], [address], 08/12/2024 14:16:49 08/12/19 25 08/12/2024 urina lysis , dipst ick Appearance Clear Not Available [address], [address], 08/12/2024 14:16:49 08/12/19 25 08/12/2024 urina lysis , dipst ick Color Pale Yellow Not Available [facility] [address] [place], [address], 08/12/2024 14:16:49 Result Notes None recorded. Problems Name Problem SNOMED Code Status Onset Date Resolution Date Notes Provider Name and Address Organization Details Recorded Time Seborrhe ic dermatit is 96399929 Completed 201606/11/2017 05/31/20 17 - Comments only - Beth Roman PA-C - Will treat with RXd KETOCONA ZOLE 2% CREAM BID. Problem Code: L21.9; Problem Code Type: ICD-10; Not Available [facility] 3 05:30:50 Benign lipomato us tumor [id number] Completed 202005/09/2021 04/26/20 21 - Comments only - Beth Roman PA-C - Will arrange for surgical consult @ [facility] for excision al procedur e. Problem Code: D17.9; Problem Code Type: ICD-10; Not Available [facility] 3 05:30:50 Shoulder joint pain 008019460 Active 202101/24/20 22 - Comments only - Monie Basilio [facility]- - - We reviewed treatmen t [...] M25.519; Problem Code Type: ICD-10; Not Available [facility] 3 05:30:50 Disorder of skin and/or subcutan eous tissue 84471831 Active 2021 Problem Code: L98.9; Problem Code Type: ICD-10; Not Available [facility] 3 05:30:50 Follicul ar cysts of skin and subcutan eous tissue 445829411 Active 2021 Problem Code: L72.9; Problem Code Type: ICD-10; Not Available [facility] 3 05:30:50 Malignan t neoplasm of skin of face 402389330 Active 2021 Problem Code: C44.300; Problem Code Type: ICD-10; Not Available [facility] 3 05:30:51 Muscle pain 30675366 Active 202106/13/20 22 - Comments only - Beth Roman PA-C - Will await results of today's laborato ry testing. Assuming benign findings with same, will consider to advance diagnost ic w/u for suspecte d L5-S1 lumbar radiculi tis. Problem Code: M79.10; Problem Code Type: ICD-10; Not Available [facility] 3 05:30:51 Cough 77439367 Active 2021 Problem Code: R05.8; Problem Code Type: ICD-10; Not Available [facility] 3 05:30:51 Upper respirat ory tract infectio n caused by Influenz a A 28845193102 9104 Active 202107/26/20 22 - Comments only - Monie Basilio [facility] - - Rapid test today POSITIVE for [...] J09.x2; Problem Code Type: ICD-10; Not Available [facility] 3 05:30:51 Acute exacerba tion of chronic obstruct alexia pulmonar y disease 312717436 Active 202108/02/20 22 - Comments only - Beth Roman PA-C - Patient to continue on ZITHROMA X as RXd by [facility] provider . OK to continue to suppleme nt with OTC MUCINEX +/- ALBUTERO L MDI via spacer. F/U PRN if sxs fail to improve as expected over the course of the week. Problem Code: J44.1; Problem Code Type: ICD-10; Not Available [facility] 3 05:30:51 History of SARS-CoV -2 67096961549 2338104 Active Problem Code: Z86.16; Problem Code Type: ICD-10; Not Available [facility] 3 05:30:51 Wheezing 80730846 Active 2022 Problem Code: R06.2; Problem Code Type: ICD-10; Not Available [facility] 3 05:30:51 Divertic kye of intestin e 43367676 Active 2006 Problem Code: K57.90; Problem Code Type: ICD-10; Not Available [facility] 3 05:30:51 Tobacco dependen ce caused by cigarett es 86491402138 094989 Active 195904/28/20 22 - Comments only - Beth Roman PA-C - Will arrange for low dose CT at [facility] at next availabl e. Problem Code: F17.210; Problem Code Type: ICD-10; Not Available [facility] 3 05:30:51 Hyperlip idemia 61501296 Active 200504/28/20 22 - Comments only - Beth Roman PA-C - Repeat lipid profile collecte d today. Will consider to RS statin therapy (conside r CRESTOR for improved tolerabi lity; ASE on LIPITOR) pending results of same. Problem Code: E78.5; Problem Code Type: ICD-10; Not Available [facility] 3 05:30:52 Erectile dysfunct ion 194630620 Active 200508/01/20 21 - Comments only - Beth Roman PA-C - Sxs stable at present. To continue on RFd SILDENAF [place] 40mg PRN. Problem Code: F52.21; Problem Code Type: ICD-10; Not Available [facility] 3 05:30:52 Adult health examinat ion Active 201504/28/20 22 - Comments only - Beth Roman PA-C - Flu and COVID booster #2 administ ered today. Problem Code: Z00.00; Problem Code Type: ICD-10; Not Available [facility] 3 05:30:52 Pain of left hand 18395239687 9103 Completed 201606/11/2017 05/31/20 17 - Comments only - Beth Roman PA-C - Will arrange for x-ray imaging to r/o for traumati c bony disrupti on. Further treatmen t interven tion, includin g consider ation towards PT vs. ortho refer, pending results of same. Problem Code: M79.642; Problem Code Type: ICD-10; Not Available [facility] 3 05:30:52 Lesion of ulnar nerve 808252084 Completed 201403/05/2017 Problem Code: G56.20; Problem Code Type: ICD-10; Not Available [facility] 3 05:30:52 Patient status finding 290622300 Completed 201503/05/2017 Problem Code: Z78.9; Problem Code Type: ICD-10; Not Available [facility] 3 05:30:52 Acute bronchit is 36216132 Completed 201603/05/2017 Problem Code: J20.9; Problem Code Type: ICD-10; Not Available [facility] 3 05:30:52 Smoker 82131543 Completed Not Available [facility] 3 05:30:52 Divertic ular disease 815023032 Completed 200605/02/2023 Not Available [facility] 3 05:30:53 Impotenc e Completed 200505/02/2023 Not Available [facility] 3 05:30:53 Dyslipid john 974812192 Completed 200505/02/2023 08/01/20 21 - Comments only - Beth Roman PA-C - Repeat lipid profile and CMP collecte d today as montiori ng on LIPITOR 10mg QD. Not Available [facility] 3 05:30:53 Chronic seborrhe ic dermatit is 718539596 Active [address], [facility] [address] , [facility] 4 08:35:16 Problem Notes None recorded. Procedures Surgical History Date Name Laterality Status Provider Name and Address Organization Details Recorded Time 4 Nebulizer tx completed [address], [facility] [address], [facility] 03/13/2024 09:56:10 4 Nebulizer tx completed EDUARD M[address] Dr, [facility] [address], [facility] 10/29/2023 11:41:27 Imaging Results None recorded. Procedure Notes None recorded. Medical Equipment None [...] Available Vitals Date Recorded Body height Body mass index (BMI) Body weight Body temperature Oxygen saturation Oxygen saturation in Arterial blood by Pulse oximetry Heart rate Respiratory rate Systolic blood pressure Diastolic blood pressure Provider Name and Address Organization Details Last Updated DateTime 5 171.45 cm 26.7 kg/m2 92679.4 8 g 97.3 [degF] 95 % 95 % 68 /min 16 /min 110 mm[Hg] 66 mm[Hg] Bernarda Tarango [facility] 5 09:48:17 Social History Question Answer Notes LastModified by Organizat ion Details LastModified Time Tobacco Smoking Status Former Smoker LUIS A Snyder, [facility] 02/21/2024 08:04:10 When Did You Quit Smoking? 1-5yearssinc elastcigaret te Quit Smoking August 2023 [email or web address] Information not available 02/21/2024 Date Of Most Recent HSA 11/07/2023 Information not available 11/07/2023 Would You Say That, In General, Your Health Is Fair [email or web address] Information not available 11/07/2023 How Often Does Anyone, Including Family, Physically Hurt You? Never [email or web address] Information not available 11/07/2023 How Often Does Anyone, Including Family, Insult Or Talk Down To You? Sometimes [email or web address] Information no t available 11/07/2023 How Often Does Anyone, Including Family, Threaten You With Harm? Never [email or web address] Information not available 11/07/2023 How Often Does Anyone, Including Family, Scream Or Curse At You? Never [email or web address] Information not available 11/07/2023 Within The Past 12 Months, You Worried That Your Food Would Run Out Before You Got Money To Buy More. Never True [email or web address] Information n ot available 11/07/2023 Within The Past 12 Months, The Food You Bought Just Didn't Last And You Didn't Have Money To Get More. Never True [email or web address] Information n ot available 11/07/2023 How Hard Is It For You To Pay For The Very Basics Like Food, Housing, Medical Care, And Heating? Would You Say It Is: Not Hard At All [email or web address] Information not available 11/07/2023 In The Past 12 Months, Has Lack Of Reliable Transportation Kept You From Medical Appointments, Meetings, Work Or From Getting Things Needed For Daily Living? No [email or web address] Information not available 11/07/2023 What Is Your Housing Situation Today? I Have Housing. [email or web address] Information not available 11/07/2023 How Often In The Past Year Have You Used Marijuana (including Smoking, Vaping, Dabbing, Or Edibles)? Never [email or web address] Information not available 11/07/2023 How Often In The Past Year Have You Used Prescription Medications That Were Not Prescribed To You? Never Information n ot available 11/07/2023 How Often In The Past Year Have You Taken Your Own Prescription Medication More Than The Way It Was Prescribed Or For Different Reasons Than Its Intended Purpose? Never [email or web address] Information no t available 11/07/2023 How Often In The Past Year Have You Used Other Drugs (for Example, Heroin, Cocaine, Meth, Salvia, Inhalants)? Never [email or web address] Information not available 11/07/2023 Have You Ever Used IV Drugs? No [email or web address] Information not available 11/07/2023 What Matters Most To You? Health And Being Happy [email or web address] Information not available 11/07/2023 During The Past Four Weeks Has Your Physical And Emotional Health Limited Your Social Activities With Family And Friends, Neighbors, Or Groups? Not At All [email or web address] Information not available 11/07/2023 During The Past Four Weeks, Was Someone Available To Help You If You Needed And Wanted Help? (For Example, If You [place] Very Nervous, Lonely, Or Blue; Got Sick And Had To Stay In Bed; Needed Someone To Talk To; Needed Help With Daily Chores; Or Needed Help Just Taking Care Of Yourself.) No- Not At All [email or web address] Information not available 11/07/2023 During The Past Four Weeks, What Was The Hardest Physical Activity You Could Do For At Least 2 Minutes? Moderate [email or web address] Information not available 11/07/2023 Can You Get To Places Out Of Walking Distance Without Help? (For Example, Can You Travel Alone On Buses Or Taxis, Or Drive Your Own Car?) Yes [email or web address] Information not available 11/07/2023 Can You Go Shopping For Groceries Or Clothes Without Someone? s Help? Yes [email or web address] Information not available 11/07/2023 Can You Prepare Your Own Meals? Yes [email or web address] Information not available 11/07/2023 Can You Do Your Housework Without Help? Yes [email or web address] Information not available 11/07/2023 Because Of Any Health Problems, Do You Need The Help Of Another Person With Your Personal Care Needs Such As Eating, Bathing, Dressing, Or Getting Around The House? No [email or web address] Information not available 11/07/2023 Can You Handle Your Own Money Without Help? Yes [email or web address] Information not available 11/07/2023 Are You Having Difficulties Driving Your Car? No uvddwoxk17 Information no t available 11/07/2023 Do You Always Fasten Your Seat Belt When You Are In A Car? No [email or web address] Information not available 11/07/2023 How Often During The Past Four Weeks Have You Been Bothered By Any Of The Following Problems? Falling Or Dizzy When Standing Up? Seldom [email or web address] Information not available 11/07/2023 Sexual Problems? Sometimes [email or web address] Informat ion not available 11/07/2023 Trouble Eating Well? Never [email or web address] Information not available 11/07/2023 Teeth Or Denture Problems? Sometimes [email or web address] Information not available 11/07/2023 Problems Using The Telephone? Never [email or web address] Information not available 11/07/2023 Tiredness Or Fatigue? Seldom [email or web address] Information not available 11/07/2023 Have You Had 2 Or More Falls Or Sustained An Injury With A Fall In The Last Year? No [email or web address] Information no t available 11/07/2023 Do You Have Difficulty With Walking Or Balance? No [email or web address] Information not available 11/07/2023 Do You Currently Use A Hearing Device? No pulsrzwh16 Information not available 11/07/2023 Do You Currently Have Any Trouble With Your Vision? No [email or web address] Information no t available 11/07/2023 Do You Exercise For About 20 Minutes Three Or More Days A Week? Yes- Most Of The Time [email or web address] Information not available 11/07/2023 Are There Any Safety Concerns In Your Home (see Attached [facility] Pamphlet)? No Information not available 11/07/2023 How Often Do You Have Trouble Taking Medicines The Way You Have Been Told To Take Them? I Do Not Have To Take Medicine [email or web address] Information not available 11/07/2023 How Confident Are You That You Can Control And Manage Most Of Your Health Problems? Somewhat Confident [email or web address] Information not available 11/07/2023 Do You Currently Have Any Difficulty With Your Hearing? No [email or web address] Information not available 11/07/2023 Date Of Most Recent SBINS 11/07/2023 [email or web address] Information not available 11/07/2023 What Was The Date Of Your Most Recent Tobacco Screening? 03/13/2024 Information not available 03/13/2024 Has Tobacco Cessation Counseling Been Provided? Yes Information not available 03/13/2024 On What Date Was Tobacco Cessation Counseling Provided? 03/13/2024 Information not available 03/13/2024 Do You Or Have You Ever Used Any Other Forms Of Tobacco Or Nicotine? No [email or web address] Information not available 11/07/2023 Sex: Male Functional Status None recorded. Mental Status None recorded. Family History Relationship Description Onset Age of this Age Resolved Age Notes LastModified by Organization Details LastModified Time Brother Family history of psychotic illness SUICID E IN 40'S Not available 06/15/2023 03:52:25 Brother Family history of diabetes mellitus type 1 [email or web address] Not available 2022 03:52:26 Father Family history of malignant neoplasm prosta te CA Not available 06/15/2023 03:52:26 Notes:*Problem: MOTHER - [...] Recorded Time Tdap 4 completed Not Available [facility] 06/15/2023 06:28:04 zoster live 3 completed Not Available [facility] 06/15/2023 06:28:04 Pneumococcal conjugate PCV 13 7 completed Not Available [facility] 06/15/2023 06:28:04 Influenza, high-dose, quadrivalent, PF 1 completed Not Available [facility] 06/15/2023 06:28:05 Influenza, high-dose, quadrivalent, PF 2 completed Not Available [facility] 06/15/2023 06:28:05 Influenza, high-dose, quadrivalent, PF 0 completed Not Available [facility] 06/15/2023 06:28:05 COVID-19, mRNA, LNP-S, PF, 100 mcg/0.5mL dose or 50 mcg/0.25mL dose 1 completed Not Available [facility] 06/15/2023 06:28:05 COVID-19, mRNA, LNP-S, PF, 100 mcg/0.5mL dose or 50 mcg/0.25mL dose 1 completed Not Available [facility] 06/15/2023 06:28:05 COVID-19, mRNA, LNP-S, PF, 100 mcg/0.5mL dose or 50 mcg/0.25mL dose 1 completed Not Available [facility] 06/15/2023 06:28:05 COVID-19, mRNA, LNP-S, bivalent, PF, 30 mcg/0.3 mL dose 2 completed Not Available [facility] 06/15/2023 06:28:05 pneumococcal polysaccharide PPV23 7 completed Not Available [facility] 06/15/2023 06:28:05 influenza, unspecified formulation 0 completed Not Available [facility] 06/15/2023 06:28:06 Influenza, high-dose, quadrivalent, PF 3 completed Not Available [facility] 08/17/2023 05:31:29 influenza, unspecified formulation 4 completed Bernardadimitri ramirez, [facility] 08/12/2024 09:38:19 SARS-COV-2 (COVID-19) vaccine, UNSPECIFIED 4 completed Bernardacyndy ramirez, [facility] 08/12/2024 09:38:34 Past Encounters Encounter ID Performer Location Encounter Start Date Encounter Closed Date Diagnosis/Indication Diagnosis SNOMED-CT Code Diagnosis ICD10 Code Diagnosis Note [id number] Bernardadimitri Tarango [facility] [address] [place] [address] 08/12/2024 09:29:31 08/12/2024 10:43:00 Abdominal pain 31468571 R10.9 ongoing and intermitte nt for approx [...] in 3 weeks to re-assess Dark stools 69592880 R19 .5 cologard negative on 11/19/23no anemia in most recent CBC in december 2023+ FHx of colon CA in father - passed @ 77yopossib le gastroduod enitis w bleed - no acute/surg ical abdomen on exam today in officetx pantoprazo le 40mg QAM, carafate 3-4x dailycheck CBC, bmp Family his tory of cancer of colon 850316941 Z80.0 in father - passed 77 Gastroduodenitis 4073131 05 K29.91 see abovepanto prazole 40mg QAMcarafat e 1g 3-4x dailyCBC, BMPantiref lux diet, avoid nsaids, tobacco, etohreferr al to GI due to strong FHx of colon CA in fatherf/u 3 weeks to re-assess Malodorous urine 7858540 01 R82.998 urine dip checked in officetrac e protein, otherwise negativein crease clear fluid intake Health Concerns Section Related Observation LastModified by Organization Detai ls LastModified Time None Recorded Concern Status LastModified by Organization Details LastModified Time None Recorded Payers Encounter Date Sequence Insurance Name Policy Number Policy Irvin Covered Member ID Irvin Member ID Guarantor Name 08/12/2024 2 [facility] (MEDICAID) Tee Bledsoe [id number] Tee Bledsoe 08/12/2024 1 [facility] (MEDICARE REPLACEMENT/A DVANTAGE - PPO) [id number] Tee Yeex [id number] Tee Bledsoe Notes Date Note Type Note Provider Name and Address Organization Details Recorded Time 08/12/2024 text/html pt. presents to office c/o [...] stomach/intestinal ulceralso c/o foul smelling urine. Bernarda ramirez, [place] - [facility]. 08/12/2024 14:20:09
== END 2024-08-12 17:08 | disposition home or self-care (01) ==
LOC: NCHCN 17:07
PROVIDERS: PCP Physician Assistant Medical; Visit Provider Family Medicine
DX: R10.9 Unspecified abdominal pain (principal)
CPT/HCPCS: 80048; 85025

== ENCOUNTER 2024-12-01 00:03 | Outpatient (CLI) | payer MEDICARE, MEDICAID, SELFPAY ==
--- NOTE | 2024-12-01 | DI.US_ITS ---
Exam(s) US AAA SCREENING EXAM: US AAA SCREENING CLINICAL HISTORY: ABDOMINAL AORTIC ANEURYSM SCREENING, Z13.6, SCREENING COMPARISON: No exams were available for comparison FINDINGS: Abdominal Aorta: Proximal: 2.4 cm Mid: 2.0 cm Distal: 1.8 cm Iliacs: Right: 1 cm Left: 1.1 cm IMPRESSION: No evidence of abdominal aortic aneurysm. DATA REPOSITORY:
--- NOTE | 2024-12-01 | DI.CTLCSR_ITS ---
Exam(s) CT CHEST LUNG CANCER SCREEN EXAM: CT CHEST LUNG CANCER SCREEN CLINICAL HISTORY: SMOKER, F17.210, NICOTINE DEPENDENCE [id number] PY HX TECHNIQUE: Imaging Protocol: Axial computed tomography images with coronal and sagittal reformatted images were created and reviewed. Lung Computer Aided Detection (CAD) was utilized. COMPARISON: CT CT CHEST LUNG CANCER SCREEN from 05/15/[address] CHEST WO from 11/16/2023 FINDINGS: Tracheobronchial tree: Patent where visualized. No bronchiectasis. Pulmonary parenchyma: Mild centrilobular emphysematous changes are seen in the lungs. There is a barak cified granuloma in the left lower lobe. No architectural distortion. Lung Nodules: No noncalcified pulmonary nodules are present. Mediastinum and Marina: No dominant adenopathy or fluid collection. The esophagus is unremarkable. Thyroid gland: Unremarkable. Lymph nodes: Unremarkable. Pleura: No effusion or pneumothorax. Heart: The heart is not dilated. Two vessel coronary artery calcification is present. No pericardial effusion. Aorta: Thoracic aorta non-dilated.Atherosclerotic calcification is present. Upper abdomen: There is a stable hypodense left adrenal nodule most consistent with an adenoma. No follow-up is recommended. Soft Tissues: Unremarkable. Bones: Within normal limits. IMPRESSION: No suspicious pulmonary nodules. Lung RADS Cat 1 - Negative: No nodules and definitely benign nodules Lung-RADS 1.0 CATEGORIES: Category 0 - Prior chest CT exam(s) being located for comparison. Category 1 - Annual screening in 12 months. No nodules or definitely benign nodules. Category 2 - Annual screening in 12 months. Benign appearance. Nodules with low likelihood of becomin g active cancer. Category 3 - 6-month follow-up. Probably benign. Short-term follow-up suggested. Nodules with low lik elihood of becoming active cancer. Category 4A - 3-month follow-up and CT/PET if >8 mm in size. Suspicious finding. Findings which requi re additional testing. Category 4B - Findings which require additional testing and tissue sampling. Suspicious finding. Category 4X - Category 3 or 4 nodules with additional features or imaging findings that increases the suspicion of malignancy. Modifier S- Potentially clinically significant finding. (Non lung cancer) RADIATION DOSE DELIVERED: 34.12mGy.cm Total DLP 34.12mGy.cmTotal DLP DATA REPOSITORY: All CT scans at this facility are submitted to the National Radiology Data Registry (NRDR) Dose Index Registry (DIR) with the [employer] ([employer]). RADIATION OPTIMIZATION: All CT scans at this facility use at least one of these dose optimization te chniques: automated exposure control; mA and/or kV adjustment per patient size (includes targeted exa ms where dose is matched to clinical indication); or iterative reconstruction.
== END 2024-12-01 00:23 ==
LOC: DI 00:03
PROVIDERS: PCP Physician Assistant Medical; Visit Provider Family Medicine
DX: F17.210 Nicotine dependence, cigarettes, uncomplicated (principal); Z13.6 Encounter for screening for cardiovascular disorders
CPT/HCPCS: 71271; 76706

== ENCOUNTER 2024-12-16 11:56 | Outpatient (REF) | payer MEDICARE, MEDICAID, SELFPAY ==
[2024-12-16 22:06] LABS: Calculated LDL 122 mg/dL (<100); Cholesterol 187 mg/dL (<200); HDL Cholesterol 46 mg/dL (>or=40); Triglyceride 96 mg/dL (<150)
[2024-12-17 21:12] LABS: PSA, Screening 5.5 ng/mL (<=6.5)
[2024-12-18 11:19] LABS: Lyme Ab w Rflx to Lyme Confirm Negative (Negative)
[2024-12-19 23:56] LABS: Anaplasma phagocytophilum Negative (Negative); B. miyamotoi PCR Negative (Negative); Babesia divergens/MO-1 Negative (Negative); Babesia duncani Negative (Negative); Babesia microti Negative (Negative); Ehrlichia chaffeensis Negative (Negative); Ehrlichia ewingii/canis Negative (Negative); Ehrlichia muris eauclairensis Negative (Negative)
== END 2024-12-16 11:57 | disposition home or self-care (01) ==
LOC: NCHCN 11:56
PROVIDERS: PCP Physician Assistant Medical; Visit Provider Family Medicine
DX: E78.5 Hyperlipidemia, unspecified (principal); Z00.00 Encounter for general adult medical examination without abnormal findings
CPT/HCPCS: 80061; 84153; 87798; 86618